=== PATIENT | male | born 1945 | race Caucasian/White ===

== ENCOUNTER 2020-09-13 17:17 | Emergency (ER) | payer MEDICARE, MEDICAID, SELFPAY ==
[2020-09-13 17:51] VITALS: BP 112/70; PULSE 79; RESP 18; TEMP 37.1; O2SAT 97; BMI 32.3
== END 2020-09-13 21:18 | disposition left against medical advice (07) ==
PROVIDERS: Emergency Provider Emergency Medicine; PCP Internal Medicine Geriatric Medicine
DX: F41.0 Panic disorder [episodic paroxysmal anxiety] (principal); E11.9 Type 2 diabetes mellitus without complications
CPT/HCPCS: 99281; 99282

== ENCOUNTER 2020-09-15 02:05 | Emergency (ER) | payer MEDICARE, MEDICAID, SELFPAY ==
[2020-09-15] VITALS (7 sets, daily range): BP systolic 134–164; BP diastolic 60–76; PULSE 65–90; RESP 12–19; TEMP 36.9–37.7; O2SAT 95–100; BMI 27.4
--- NOTE | ~2020-09-15 | XR_ITS ---
EXAMINATION: XR SHOULDER, LEFT XR HUMERUS, LEFT CLINICAL INFORMATION: Fall. Pain. COMPARISON: None TECHNIQUE: External rotation AP and Y views of the left shoulder. AP and lateral views of the left humerus. XR/XR shoulder LT min 2V FINDINGS/IMPRESSION: There is a comminuted fracture of the proximal humerus involving both the surgical and anatomic necks. Humeral diaphysis is displaced one shaft width posteriorly with respect to the glenoid. Greater tuberosity fracture fragments present posterosuperior to the humeral head. The humeral head slightly subluxed inferiorly with respect to the glenoid, likely related to hemarthrosis. Remainder of the humerus intact. Degenerative changes of the acromioclavicular joint
--- NOTE | ~2020-09-15 | XR_ITS ---
EXAMINATION: XR CHEST CLINICAL INFORMATION: Leukocytosis COMPARISON: September 20, 2012 TECHNIQUE: AP portable view of the chest was obtained. FINDINGS: No significant abnormality is noted involving the heart, lungs, mediastinum, bony thorax or soft tissues. Status post previous right arm surgery. XR/XR chest 1V IMPRESSION: No acute disease.
--- NOTE | ~2020-09-15 | CT_ITS ---
EXAMINATION: CT HEAD WITHOUT CONTRAST CLINICAL INFORMATION: Dizziness COMPARISON: None TECHNIQUE: Contiguous axial imaging was performed from the skull base to vertex without intravenous administration of contrast. This CT examination was performed using dose optimization techniques as appropriate, variously including the following: *Automated exposure control *Adjustment of mA and/or kV according to patient size (this includes techniques or standardized protocols for targeted exams where dose is matched to indication/reason for exam; i.e. extremities or head) *Use of iterative reconstruction technique DLP: 669 mGy-cm FINDINGS: There is no evidence of acute intracranial hemorrhage or territorial infarction. No abnormal mass effect or midline shift is seen. Beyer to white matter differentiation is well preserved. No extra-axial fluid collections are identified. The ventricles are normal in size. There is no abnormal attenuation within the brain parenchyma. The osseous structures and soft tissues are normal. The mastoid air cells and visualized portions of the paranasal sinuses are well aerated. CT/CT head/brain wo con IMPRESSION: No acute intracranial process seen.
--- NOTE | ~2020-09-15 | XR_ITS ---
EXAMINATION: XR SHOULDER, LEFT XR HUMERUS, LEFT CLINICAL INFORMATION: Fall. Pain. COMPARISON: None TECHNIQUE: External rotation AP and Y views of the left shoulder. AP and lateral views of the left humerus. XR/XR humerus LT FINDINGS/IMPRESSION: There is a comminuted fracture of the proximal humerus involving both the surgical and anatomic necks. Humeral diaphysis is displaced one shaft width posteriorly with respect to the glenoid. Greater tuberosity fracture fragments present posterosuperior to the humeral head. The humeral head slightly subluxed inferiorly with respect to the glenoid, likely related to hemarthrosis. Remainder of the humerus intact. Degenerative changes of the acromioclavicular joint
[2020-09-15] MEDS: Ketorolac Tromethamine 15 MG/ML VIAL IM (02:28)
[2020-09-15] MEDS: Acetaminophen 325 MG TABLET 975 MG PO (02:28)
--- NOTE | 2020-09-15 02:39 | ED_ITS ---
HPI - Fall General Chief Complaint: Fall Stated Complaint: [facility] FALL W/L ARM PAIN,NO DEFORMITY,NO THINNERS Time Seen by Provider: 09/15/20 02:12 Source: patient and contract law specialist History of Present Illness HPI Narrative: 74-year-old male without significant past medical history brought in via EMS for a fall that resulted in significant left shoulder pain. Patient states he got up in the middle the night to get some orange juice spilled some of the orange juice and then stepped into it causing him to slip and fall backwards onto his left shoulder. Patient denies any head strike, blood thinners, loss of consciousness and describes the pain to be isolated to his left shoulder without numbness or tingling into his left fingers. Related Data Previous Rx's Medication Instructions Recorded ketorolac 10 mg tablet 10 mg PO Q6H PRN 5 Days #20 tab 09/15/20 Allergies Allergy/AdvReac Type Severity Reaction Status Date / Time Sulfa (Sulfonamide Allergy Unknown UNKNOWN - Verified 09/15/20 02:08 Antibiotics) PT STATES [SULFA (SULFONAMIDE HEMATURIA ANTIBIOTICS)] Review of Systems Review of Systems: Pertinent positives and negatives as stated in HPI 10 point review of systems is otherwise negative. PMFSH Past Medical History Medical History No acute medical problems Surgical History No history of previous surgery Social History Social History Advance Directives: No Advance Directives Information Provided: No Physical Exam Vital Signs: Vital Signs: Last Vital Signs Temp 98.7 F 09/15/20 07:09 Pulse 65 09/15/20 07:09 Resp 15 09/15/20 07:09 BP 150/68 H 09/15/20 07:09 Pulse Ox 96 09/15/20 07:09 Body Mass Index 27.4 VITAL SIGNS: Reviewed. GENERAL: Well developed, well nourished, in no acute distress. HEAD: Normocephalic/atraumatic EYES: PERRLA, EOMI EARS: Ext canals without abnormality OROPHARYNX: no oral lesions noted, posterior pharynx clear LUNGS: Normal breath sounds. No adventitious sounds or accessory muscle use. SpO2<96> CARDIOVASCULAR: Regular rate and rhythm without noted murmurs ABDOMEN: Soft, non-tender, non-distended with bowel sounds. LEFT UPPER EXTREMITY: Noted swelling and tenderness over deltoid portion of left shoulder, palpable radial/ulnar pulses, capillary refill less than 3 seconds, sensation intact SKIN: Inspection of the skin reveals no rashes NEUROLOGIC: Alert and oriented x 4. Strength and sensation to light touch were grossly intact x 4. Course Course Course Narrative: 74-year-old male with history and clinical presentation consistent with fracture versus dislocation left shoulder/humerus. Patient received combination analgesics for pain control. On review of all investigations patient found to have a common you did humeral head fracture that was dislocated and subluxed. 0319: Discussed case with orthopedics who recommends a sling and discharged home stating that they will call the patient. The nursing staff and myself went into the room with a community development worker to explain the plan to the patient as well as this diagnosis and although patient was acknowledging some portions of the discussion there were in consistencies and times that the patient appear to be a little off. Attempted to call available numbers for collateral information, however there were no answers at any of the phone numbers that were available. At this time I do not feel comfortable with discharging the patient and we will obtain basic labs and involve Case Management as well as physical therapy. Signed out to Dr Jarrett: f/u basic labs, PT, CM unless collateral information dictates otherwise. 0850: We were finally able to get in touch with patient's 's visiting nurse (the is currently at [facility]) who states that she has been attempting to get services for this patient for ?awhile?. It is her opinion that he seems to have forgetfulness and possibly early dementia. Discharge Plan Discharge Clinical Impression: Fracture of proximal end of left humerus Patient Disposition: Home, Self-Care Instructions: Proximal Humerus Fracture (ED) Additional Instructions: 1. Tylenol 1000 mg, por v?a oral, cada 6 horas seg?n sea necesario para controlar el dolor. No exceda los 4000 mg en 24 horas. 2. Juan J un seguimiento con paul proveedor de atenci?n primaria en los pr?ximos 1-2 d?as para victor m reevaluaci?n y un tratamiento ambulatorio adicional. 3. La oficina de cirug?a ortop?dica se comunicar? con usted hoy para programar victor m doris para paul brazo roto. 4. Por favor mantenga paul brazo en el cabestrillo hasta que sea evaluado por cirug?a ortop?dica. Regrese a la maryam de emergencias por un empeoramiento daphne de osbaldo s?ntomas. Prescriptions: New ketorolac 10 mg tablet 10 mg PO Q6H PRN (Reason: pain) 5 Days Qty: 20 RF: 0 Referrals: Chris Combs MD [Physician] - 2 days (Evaluation and treatment for proximal humeral fracture.) Name,MD Kana [Primary Care Provider] - 2 days (Re-evaluation for left humeral fracture) Print Language: Japanese
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
[2020-09-15] MEDS: Ketorolac Tromethamine 15 MG/ML VIAL IVPUSH (07:33)
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
[2020-09-15 09:05] LABS: Basophils Percent Auto 0.2 % (0-2); Hematocrit 44.4 % (42-52); Imm Gran Abs Auto 0.11 X10*3/uL (0.00-0.03); Imm Gran Pct Auto 0.5 % (0.0-0.4); Lymphocytes Absolute Auto 1.4 X10*3/uL (1.2-4.9); MANUAL DIFF FLAG SCAN; Mean Corpuscular HGB Conc 33.8 g/dl (31.0-36.0); Mean Corpuscular Hemoglobin 28.8 pg (27.0-33.0); Mean Corpuscular Volume 85.2 fL (80-98); Mean Platelet Volume 10.3 fL (9.4-12.4); Monocytes Absolute Auto 1.9 X10*3/uL (0.1-1.2); Monocytes Percent Auto 9.7 % (2-11); Neutrophils Absolute Auto 16.6 X10*3/uL (2.0-8.3); Neutrophils Percent Auto 82.6 % (45-73); Platelet Count 353 X10*3/uL (160-400); Red Blood Count 5.21 X10*6/uL (4.60-5.80); Red Cell Distribution Width 14.2 % (11.0-16.0); SCAN SMEAR FLAG 1; White Blood Count 20.1 X10*3/uL (4.8-10.8)
[2020-09-15 09:11] LABS: INTERNATIONAL NORM RATIO 1.1 (0.9-1.1); Prothrombin Time 12.7 SEC (9.9-13.0)
[2020-09-15 09:24] LABS: SLIDE REVIEW VERIFIED
[2020-09-15 09:30] LABS: Alanine Aminotransferase 15 U/L (0-40); Albumin Level 4.4 g/dL (3.5-5.0); Alkaline Phosphatase 50 U/L (39-117); Anion Gap 12 (12-20); Aspartate Amino Transferase 21 U/L (5-37); Bilirubin Total 1.9 mg/dL (0.0-1.0); Blood Urea Nitrogen 9 mg/dL (9-16); Calcium 9.5 mg/dL (8.4-10.2); Carbon Dioxide 24 mmol/L (22-29); Chloride 103 mmol/L (96-108); Creatinine Clr Calc Pharmacy 81.3; Estimated Glomerular Filt Rate > 60; Glucose Random 106 mg/dL (60-115); Potassium 3.4 mmol/L (3.3-5.1); Sodium 136 mmol/L (135-145)
[2020-09-15 09:30] LABS: Glucose, Whole Blood 109 mg/dL (60-115)
[2020-09-15 10:07] LABS: Glucose Urine UA NEG (NEG); Leukocyte Esterase Urine NEG (NEG); Nitrite Urine NEG (NEG); Specific Gravity - Urine 1.015 (1.005-1.025); Urine Blood NEG (NEG); Urine Ketones 40 MG/DL (NEG); Urine Protein NEG (NEG-TRACE)
[2020-09-15 10:09] LABS: Appearance Urine CLEAR; Color Urine YELLOW
--- NOTE | 2020-09-15 10:23 | MHC.CM.ED ---
Received case management consult overnight from Dr Brown. Patient came to the ER after a fall. Physical therapy eval completed. Short term rehab is recommended. Patient's is at [facility]. Referral made to [facility]. They do not have a male bed to offer today. Referral broadcasted in [place]. Attempted to reach patient's daughter, Vilma via telephone at [phone]. Left voicemail requesting return telephone call. Continue to monitor for d/c needs.
--- NOTE | 2020-09-15 10:39 | MHC.CM.ED ---
Per Yamileth at [facility], patient's insurance is [facility]. Insurance verification made aware. Continue to monitor for d/c needs.
[2020-09-15 11:11] LABS: COVID-19 Test Negative (Negative); IDNOW Serial# 08D9AD1C
--- NOTE | 2020-09-15 13:25 | MHC.CM.ED ---
Patient remains in ER. Still have not received return telephone call from daughter. T/W reached out to Priscilla at [facility]. Still waiting for call back with patient info. Continue to monitor for d/c needs.
[2020-09-15] MEDS: Morphine Sulfate 2 MG/ML CARTRIDGE IM (14:35)
--- NOTE | 2020-09-15 14:42 | MHC.CM.ED ---
Received return telephone call from Vilma. Vilma is Ailyn's daughter, not Francisco's. Vilma is not sure if there is a HCP or if patient would be agreeable to STR. Will attempt to meet with patient and patient scheduling coordinator. Continue to monitor for d/c needs.
--- NOTE | 2020-09-15 15:20 | PC.NURSE ---
CASE MANAGEMENT AT THE BEDSIDE WITH SOUND EFFECTS PERSON TO EXPLAIN PLAN OF CARE TO THE PATIENT. PHYSICAL THERAPY RECOMMENDING STR FOR THE PATIENT.
--- NOTE | 2020-09-15 15:28 | MHC.CM.ED ---
Addendum entered by Shannan Lu 09/15/20 16:20: Patient received 2nd Moderna vaccine on 09/01/20. Original Note: Met with patient and hand ii cutter. Patient verbalizes understanding of the need of short term rehab and that [facility] does not have a bed available. Patient is requesting a facility in [place]. [facility] updated. Continue to monitor for d/c needs.
--- NOTE | 2020-09-16 08:24 | PC.NURSE ---
pt a/o x 2, pt states [place] was in [place] aware.
[2020-09-16 08:25] VITALS: BP 136/93; PULSE 74; RESP 16; TEMP 37.5; O2SAT 96
--- NOTE | 2020-09-16 12:33 | MHC.CM.ED ---
Patient remains in ER. [facility], [facility], [facility] [address], and [facility] can offer beds. Met with pateint and senior ios developer in regards to short term rehab options. Patient accepts bed at [facility]. [facility] booked for 2pm. [facility] with chart. Patient, Maribel SANCHEZ and Rolando RICARDO aware. Continue to monitor for d/c needs.
--- NOTE | 2020-09-16 13:33 | PC.NURSE ---
Report given to Ben arriola RN. Ambulance coming to transport patient @1400.
== END 2020-09-16 13:59 | disposition home or self-care (01) ==
PROVIDERS: Student in an Organized Health Care Education/Training Program; Emergency Provider Emergency Medicine; PCP Internal Medicine Geriatric Medicine
DX: S42.222A 2-part displaced fracture of surgical neck of left humerus, initial encounter for closed fracture (principal); S42.292A Other displaced fracture of upper end of left humerus, initial encounter for closed fracture; S42.255A Nondisplaced fracture of greater tuberosity of left humerus, initial encounter for closed fracture; W01.0XXA Fall on same level from slipping, tripping and stumbling without subsequent striking against object, initial encounter; E11.9 Type 2 diabetes mellitus without complications; Y93.89 Activity, other specified; Y92.030 Kitchen in apartment as the place of occurrence of the external cause; Y99.9 Unspecified external cause status; Z20.822 Contact with and (suspected) exposure to COVID-19
CPT/HCPCS: 36415; 70450; 71045; 73030; 73060; 80053; 81003; 82947; 85025; 85610; 87635; 96372; 96374; 97162; 99285; J1885; J2270

== ENCOUNTER 2020-10-06 08:13 | Outpatient (REF) | payer MEDICARE, MEDICAID, SELFPAY | END 2020-10-06 08:14 | disposition home or self-care (01) | LOC: HO.HOSX 08:13 | PROVIDERS: Visit Provider Orthopaedic Surgery | DX: Z13.89 Encounter for screening for other disorder (principal) ==

== ENCOUNTER → 2020-12-06 13:56 | Outpatient (BNVA) | payer MEDICARE, MEDICAID, SELFPAY | PROVIDERS: Visit Provider Internal Medicine | DX: M54.50 Low back pain, unspecified (principal); B36.9 Superficial mycosis, unspecified | CPT/HCPCS: 99202 ==

== ENCOUNTER 2022-10-24 14:15 | Emergency (ER) | payer OTHER, SELFPAY ==
--- NOTE | ~2022-10-24 | XR_ITS ---
EXAMINATION: XR SHOULDER, LEFT CLINICAL INFORMATION: Shoulder pain. COMPARISON: None available. TECHNIQUE: Three views of the left shoulder. XR/XR shoulder LT min 2V FINDINGS/IMPRESSION: Severe deformity of the left humeral head is likely posttraumatic and/or postsurgical in nature. Findings suggest degenerative changes of the glenohumeral joint and acromioclavicular joint. No definite acute fracture or dislocation is identified as such, although deformity somewhat limits evaluation. Mild atherosclerotic aorta..
[2022-10-24 14:25] VITALS: BP 120/68; PULSE 120; O2SAT 96
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
[2022-10-24 14:33] VITALS: BP 113/66; PULSE 97; RESP 18; TEMP 36.9; O2SAT 96; BMI 22.6
== END 2022-10-24 18:23 | disposition home or self-care (01) ==
PROVIDERS: Emergency Provider Emergency Medicine
DX: S40.012A Contusion of left shoulder, initial encounter (principal); M25.512 Pain in left shoulder; V43.52XA Car driver injured in collision with other type car in traffic accident, initial encounter; Y93.9 Activity, unspecified; Y92.410 Unspecified street and highway as the place of occurrence of the external cause; Y99.9 Unspecified external cause status
CPT/HCPCS: 73030; 99282; 99283

== ENCOUNTER 2023-10-29 12:09 | Outpatient (REF) | payer OTHER, SELFPAY ==
[2023-10-29 13:17] LABS: MANUAL DIFF FLAG NO
[2023-10-29 13:26] LABS: Basophils Absolute Auto 0.1 X10*3/uL (0.0-0.2); Basophils Percent Auto 0.7 % (0-2); Eosinophils Absolute Auto 0.2 X10*3/uL (0.0-0.4); Eosinophils Percent Auto 2.4 % (0-4); Hematocrit 46.7 % (42.0-52.0); Hemoglobin 15.5 g/dl (14.0-18.0); Imm Gran Abs Auto 0.03 X10*3/uL (0.00-0.03); Imm Gran Pct Auto 0.3 % (0.0-0.4); Lymphocytes Absolute Auto 1.5 X10*3/uL (1.2-4.9); Lymphocytes Percent Auto 16.7 % (20-40); Mean Corpuscular HGB Conc 33.2 g/dl (31.0-36.0); Mean Corpuscular Hemoglobin 29.8 pg (27.0-33.0); Mean Corpuscular Volume 89.8 fL (80.0-98.0); Mean Platelet Volume 10.5 fL (9.4-12.4); Monocytes Absolute Auto 0.7 X10*3/uL (0.1-1.2); Monocytes Percent Auto 8.5 % (2-11); Neutrophils Absolute Auto 6.2 x10*3/uL (2.0-8.3); Neutrophils Percent Auto 71.4 % (45-73); Platelet Count 385 X10*3/uL (160-400); Red Cell Distribution Width 14.3 % (11.0-16.0); White Blood Count 8.7 X10*3/uL (4.8-10.8)
[2023-10-29 13:58] LABS: Alanine Aminotransferase 18 U/L (0-40); Albumin Level 4.6 g/dL (3.5-5.0); Alkaline Phosphatase 38 U/L (39-117); Anion Gap 14 (12-20); Aspartate Amino Transferase 19 U/L (5-37); Bilirubin Total 0.8 mg/dL (0.0-1.0); Blood Urea Nitrogen 10 mg/dL (9-16); Calcium 9.9 mg/dL (8.4-10.2); Carbon Dioxide 24 mmol/L (22-29); Chloride 106 mmol/L (96-108); Cholesterol 193 mg/dL (<200); Estimated Glomerular Filt Rate > 60; Glucose Random 98 mg/dL (60-115); HDL Cholesterol 54 mg/dL (>40); LDL Cholesterol Calculated 122 mg/dL (<100); Potassium 4.4 mmol/L (3.3-5.1); Sodium 140 mmol/L (135-145); Total Protein 7.5 g/dL (6.5-8.0); Triglycerides 89 mg/dL (<150)
[2023-10-29 14:33] LABS: Estimated Average Glucose 105 mg/dL; Hemoglobin A1c % 5.3 % (<6.0)
[2023-10-30 04:15] LABS: Syphilis Screen Nonreactive (Nonreactive)
[2023-10-30 04:37] LABS: HBc Num1 5.32 S/CO (0.00-0.79); HBsAGNum1 0.22 S/CO (0.00-0.99); Hepatitis B Surface Antigen Negative (Negative); ~HepC Num1 0.45 S/CO (0.00-0.79); ~Hepatitis B Surface Antibody REACTIVE (Nonreactive); ~Hepatitis C Antibody Nonreactive (Nonreactive)
[2023-10-30 04:58] LABS: HIV AB/AG Nonreactive (Nonreactive); HIV Num 1 0.05 S/CO (0.00-0.99)
[2023-10-30 05:35] LABS: HBc Num2 5.64 S/CO; HBc Num3 5.39 S/CO; Hepatitis B Core Antibody Reactive (Nonreactive)
== END 2023-10-29 12:10 | disposition home or self-care (01) ==
LOC: HO.HHCL 12:09
PROVIDERS: Visit Provider Registered Nurse
DX: Z00.00 Encounter for general adult medical examination without abnormal findings (principal); Z13.1 Encounter for screening for diabetes mellitus
CPT/HCPCS: 36415; 80053; 80061; 83036; 85025; 86704; 86706; 86780; 86803; 87340; 87389

== ENCOUNTER 2023-10-30 14:09 | Outpatient (REF) | payer OTHER, SELFPAY ==
--- NOTE | ~2023-10-30 | XR_ITS ---
EXAMINATION: Lumbosacral spine series CLINICAL INFORMATION: Chronic low back pain. COMPARISON: X-ray lumbosacral spine April 2015. TECHNIQUE: 4 views of the lumbosacral spine including obliques FINDINGS: There is a transitional lumbar sacral junction with partial lumbarization of S1. There is persistent/chronic compression fracture of L1 involving the superior endplate unchanged. Vertebral body height otherwise normal with normal alignment. Multilevel degenerative disc changes manifested by endplate osteophytes without disc space narrowing at all disc levels. Suspect at least mild facet arthrosis at the L4-L5 and L5-S1 levels. Surrounding bones and soft tissues unremarkable except for persistent to mild calcification of the abdominal aorta. . XR/XR lumbar spine 4V min IMPRESSION: Multilevel spondylosis of the lumbosacral spine stable. Stable old compression fracture L1 Electronically signed by: Damián Castro MD 11/14/2023 07:20 AM EDT
== END 2023-10-30 14:10 | disposition home or self-care (01) ==
LOC: HO.HHCX 14:09
PROVIDERS: Visit Provider Registered Nurse
DX: M54.50 Low back pain, unspecified (principal); G89.29 Other chronic pain
CPT/HCPCS: 72110

== ENCOUNTER 2023-11-27 12:57 | Outpatient (REF) | payer OTHER, MEDICAID, SELFPAY ==
--- NOTE | ~2023-11-27 | MM_ITS ---
EXAMINATION: BONE DENSITOMETRY CLINICAL INDICATION: 77-year-old male with history of osteoporosis. No treatment for greater than 5 years. COMPARISON: Previous BD dated 09/26/2012 and baseline BD dated 01/07/2007. TECHNIQUE: Using a [employer]Cast DXA System (software version: 13.1) manufactured by [employer], dual-energy x-ray absorptiometry was performed of the lumbar spine and left hip. The images are of good technical quality. Summary results are attached. FINDINGS: AP SPINE L1-L4: Current: BMD 0.981 g/cm2, Z-score -1.1, T-score -2.0, osteopenia, 2.1% increase from previous, 14.1% increase from baseline (<5% change is not significant). Prior: BMD 0.961 g/cm2. Baseline: BMD 0.860 g/cm2. LEFT FEMUR, NECK: Current: BMD 0.732 g/cm2, Z-score -1.0, T-score -2.6, osteoporosis. Prior: BMD 0.791 g/cm2. Baseline: BMD 0.767 g/cm2. LEFT FEMUR, TOTAL: Current: BMD 0.809 g/cm2, Z-score -0.9, T-score -2.0, osteopenia, 14.9% decrease from previous, 13.8% decrease from baseline (<5% change is not significant). Prior: BMD 0.951 g/cm2. Baseline: BMD 0.939 g/cm2. IDENTIFIED RISK FACTORS: Osteoporosis. Current smoker. HISTORY OF FRACTURE: None listed. MEDICATIONS: Vitamin D. MM/XR DEXA axial skeleton IMPRESSION: 1. DIAGNOSIS: Osteoporosis based on the lowest T-score value of -2.6 in the femoral neck applying World Health Organization criteria. 2. 10-YEAR FRACTURE RISK PREDICTION, FRAX: According to the guidelines, FRAX calculation should only be performed on patients in the osteopenia bone density category. Therefore, FRAX was not performed on this patient. 3. Treatment Recommendations: NOF guidelines recommend consideration for treatment in postmenopausal women and men age 50 and older presenting with the following: -A hip or vertebral (clinical or morphometric) fracture. -T-score less than or equal to -2.5 at the femoral neck or spine after appropriate evaluation to exclude secondary causes. -Low bone mass at the hip or spine and a 10-year fracture probability by FRAX of greater than or equal to 3% for hip fracture or greater than or equal to 20% for major osteoporotic fracture based on the [place] adapted WHO algorithm. 4. Other Recommendations: All treatment decisions require clinical judgment and consideration of individual patient factors, including patient preferences, comorbidities, previous drug use, risk factors not captured in the FRAX model (e.g. frailty, falls, vitamin D deficiency, increased bone turnover, interval significant decline in bone density) and possible under or overestimation of fracture risk by FRAX. Additional medical evaluation for secondary cause of low bone mineral density may be appropriate. FUTURE SCAN RECOMMENDATION: People with diagnosed cases of osteoporosis or at high risk for fracture should have regular bone mineral density tests. For patients eligible for Medicare, routine testing is allowed once every 2 years. The testing frequency can be increased to one year for patients who have rapidly progressing disease, those who are receiving or discontinuing medical therapy to restore bone mass, or have additional risk factors. Electronically signed by: Buster Villegas MD 12/06/2023 09:57 AM EDT
== END 2023-11-27 12:58 | disposition home or self-care (01) ==
LOC: HO.MAMMO 12:57
PROVIDERS: PCP Registered Nurse; Visit Provider Registered Nurse
DX: M81.0 Age-related osteoporosis without current pathological fracture (principal)
CPT/HCPCS: 77080

== ENCOUNTER 2025-01-21 14:03 | Emergency (ER) | payer OTHER, SELFPAY ==
[2025-01-21] VITALS (8 sets, daily range): BP systolic 120–178; BP diastolic 56–84; PULSE 92–130; RESP 16–36; TEMP 36.7; O2SAT 93–97; BMI 25.6
--- NOTE | ~2025-01-21 | CT_ITS ---
CLINICAL HISTORY: abdominal pain,LLQ CT ABDOMEN AND PELVIS WITH CONTRAST Comparison: None provided Findings: Bilateral lower lobe opacities, right greater than left. No pleural effusion. No acute injuries in the solid organs. 2.4 cm lobulated cyst in the left hepatic lobe. No hydronephrosis. 4.0 cm lobulated cystic lesion in the upper pole of the right kidney with density measurements = 36 HU, not consistent with a simple cyst. 2.0 cm water attenuation cystic lesion in the left kidney. Gallbladder unremarkable. No AAA. No hemoperitoneum or pneumoperitoneum. No bowel obstruction, ascites or pneumatosis. Multiple colonic diverticula with no significant paracolic edema. The appendix is unremarkable. The prostate is enlarged with AP x transverse dimensions of 4.4 x 4.9 cm. There is mass effect on the urinary bladder base. There is diffuse urinary bladder wall thickening with adjacent fat stranding. Cortical irregularities and disruptions in the bilateral parasymphyseal regions. No symphysis pubis diastasis. No acute hip fracture or dislocation. No significant vertebral body compression deformity in the thoracolumbar spine. IMPRESSION: 1. Motion affected study. 2. No solid organ or bowel injury. 3. Bilateral nondisplaced pubic bone fractures. 4. Bilateral lower lobe opacities secondary to volume loss, infection or inflammation i.e. aspiration, right greater than left. 5. Wall thickening in the urinary bladder secondary to cystitis and/or outlet obstruction from prostatomegaly. 6. No acute obstructive uropathy. 4.0 cm complex cyst in the right kidney is technically indeterminate. Follow-up dedicated renal CT or MRI could be performed on a nonemergent elective basis. 7. Diverticulosis coli with no evidence for acute diverticulitis. 8. Additional findings as above. This document has been electronically signed by: Paula Calles DO on 01/21/2025 17:47:44
--- NOTE | ~2025-01-21 | CT_ITS ---
CLINICAL HISTORY: fall head strike CT HEAD WITHOUT CONTRAST Comparison: None provided Findings: Trace subarachnoid hemorrhage in the left posterior parietal lobe on axial image 46, series 4. Small subarachnoid hemorrhage in the anterior interhemispheric fissure measures roughly 1.1 x 1.1 x 0.6 cm on axial image 55. 2.5 mm periventricular hyperdensity in the right frontal lobe is suspicious for a tiny parenchymal hemorrhage on axial image 46. No hydrocephalus or midline shift. Age appropriate generalized parenchymal atrophy. There are periventricular and subcortical white matter hypodensities which are most likely related to microangiopathic gliosis. No sinus fluid. Complete opacification of the right mastoid air cells. There is fluid in the middle auditory canal. No obvious temporal bone fracture. Visualized orbits: No acute abnormalities. IMPRESSION: 1. Trace subarachnoid hemorrhage in the left posterior parietal lobe. 2. Small subarachnoid hemorrhage in the anterior interhemispheric fissure. 3. 2.5 mm periventricular hyperdensity in the right frontal lobe is suspicious for a tiny parenchymal hemorrhage. 4. Favor inflammatory over traumatic right otomastoiditis. Recommend clinical correlation. This document has been electronically signed by: Paula Calles DO on 01/21/2025 17:32:40
--- NOTE | ~2025-01-21 | XR_ITS ---
EXAMINATION: XR CHEST CLINICAL INFORMATION: weakness COMPARISON: September 07, 2020 TECHNIQUE: Frontal view of the chest was obtained. FINDINGS: There is minimal basilar atelectasis. Lungs are clear otherwise. Heart size is within normal limits. There are anchors in the right humerus related to rotator cuff repair. There is chronic deformity from remote fracture of the proximal left humerus. XR/XR chest 1V IMPRESSION: No acute disease. Electronically signed by: Juan Luis Davila MD 01/21/2025 03:10 PM [facility]BOR[facility] CANTU
--- NOTE | ~2025-01-21 | CT_ITS ---
CLINICAL HISTORY: fall CT CERVICAL SPINE WITHOUT CONTRAST Comparison: None provided Findings: Vertebral alignment is within normal limits. [id number] multilevel disc space narrowing with large multilevel endplate osteophytes. Mild multilevel facet degenerative changes. No acute fractures or dislocations. Please see separate report for CT head/brain. No acute abnormalities in the soft tissues of the neck or lung apices. IMPRESSION: No acute fracture in the cervical spine. This document has been electronically signed by: Paula Calles DO on 01/21/2025 17:35:12
--- NOTE | 2025-01-21 14:48 | ED.SYNCOPE ---
HPI - Syncope General Chief Complaint: Syncope Stated Complaint: Dizzy for 2 days, LOC +jacky Time Seen by Provider: 01/21/25 14:36 Source: patient, family (), EMS and accountant manager History of Present Illness ED Provider: HPI narrative: 79-year-old male here with his , brought in by ambulance, reports of not feeling well for the past 2 days, patient reported feeling weak and dizzy, increased urination, left lower quadrant abdominal pain, decreased p.o. intake since 16:00 yesterday, today he was walking in his holding her hand and he felt unwell and passed out hitting his head, likely LOC, not on blood thinners, patient denied chest pain palpitations prior to collapsed, no reports of loss of bowel or bladder function, no reports of seizures. Related Data Home Medications ?Medication ?Instructions ?Recorded ?Confirmed omeprazole 20 mg capsule,delayed 1 cap PO DAILY 09/15/20 09/15/20 release Previous Rx's ?Medication ?Instructions ?Recorded naproxen 375 mg tablet,delayed 375 mg PO BID #30 tabs 12/06/20 release (EC-Naproxen) nystatin 100,000 unit/gram topical 1 appl topical TID #30 grams 12/06/20 cream acetaminophen 325 mg capsule 650 mg (2 x 325 mg) PO Q6H PRN 10/24/22 (Tylenol) pain #30 caps ibuprofen 600 mg tablet 600 mg PO Q6H PRN pain #30 tabs 10/24/22 oxycodone 5 mg capsule 5 mg PO Q8H PRN severe pain (scale 10/24/22 score 7-10) #5 caps Allergies Allergy/AdvReac Type Severity Reaction Status Date / Time Sulfa (Sulfonamide Allergy Unknown UNKNOWN - Verified 01/21/25 14:33 Antibiotics) (SULFA PT STATES (SULFONAMIDE ANTIBIOTICS)) HEMATURIA Review of Systems Constitutional: Constitutional: Reports as per [facility] Past Medical History Medical History (Updated 01/21/25 @ 15:01 by Berny Shoemaker DO) Low back pain 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 Osteoporosis Diabetes No acute medical problems Surgical History (System 10/24/22 @ 17:25 by Christie Cruz) No history of previous surgery Social History Social History (System 10/24/22 @ 17:25 by Christie Moore Alcohol intake: never Patient Tobacco Use Status: Never used Tobacco Smoked in Last 30 Days: Yes Use of substances other than those prescribed or required for medical reasons: No Advance Directives: No Advance Directives Information Provided: Yes Physical Exam Exam: Exam: ?General: ??looks age appropriate ?Dried blood at the left nare, there was no septal hematoma, there is no nasal deformity, dry oral mucosa no blood in the airway Neck: Cervical collar cleared using nexus criteria ?CV: RRR, no obvious murmurs appreciated ?Resp: ?No wheezing rales rhonchi no stridor moving air well Abd: ?Bowel sounds are present, no tenderness no rebound no rigidity MSK: FROM, strength 5/5 all extremities, no deformities to the upper or lower extremities Skin: No hematomas no abrasions, no midline tenderness or step-offs from the cervical down to the lumbosacral area, pelvis is stable ?Neuro: ?Alert to self, location, month but not ear, moving upper and lower extremities symmetrically, no obvious facial asymmetry noted, cranial nerves 2-12 intact Vital Signs: Vital Signs: Last Vital Signs Temp 98.1 F 01/21/25 14:29 Pulse 92 01/21/25 16:47 Resp 20 01/21/25 16:47 BP 123/63 01/21/25 16:47 Pulse Ox 96 01/21/25 16:47 O2 Del Method Room Air 01/21/25 16:47 BMI result Body Mass Index 25.6 Course Reevaluation(s) Reevaluation #1: 4:28 PM 01/21/2025 (Dr. Maurisio Mace): I assumed care at this time the patient is arriving with a syncopal episode. Bloody nose that resolved prior to arrival. He apparently has small collapsing IVC and otherwise examination lab work suggestive of hypovolemia per the examination and interpretation of the previous provider who signed him out to me. Patient is hypokalemic he is getting continued fluids I will write for potassium supplementation and continue to reassess. Apparently O2 sat with the EMS 90 but he has been on room air here saturating in the mid 90s no respiratory distress per nurse Reevaluation #2: 5:37 PM 01/21/2025 (Dr. Maurisio Mace): I was called by Radiology about small traumatic subarachnoid hemorrhages scattered. Unfortunately we have no neurosurgical coverage despite BIG 1 patient will need transfer to trauma center I will call [facility]. CT abdomen also read with traumatic injury stable pubic fractures he is tender over that area though there was no bruising no other traumatic injuries of the abdomen. There is suspicion of the CT of possible pneumonia and/or thickening of the bowel bladder we will get a urinalysis but he does not have any dysuria. Impression: Overall the patient has concerning syncopal episode possibly due to arrhythmia given the profound hypokalemia. He was dehydrated and has received crystalloid and electrolyte repletion. He appears to have multiple small scattered subarachnoid hemorrhages traumatic no neck injury. And pelvic fracture. Transfer to [facility] disposition. Reevaluation #3: 6:18 PM 01/21/2025 (Dr. Maurisio Mace): Around this time patient became quite tachycardic and developed rigors. He was covered in warm blankets. Heart rate up in the 120s but remains hemodynamically stable. Sat 92 on room air you appears uncomfortable my suspicion is that he is in significant pain after I examined him following the identification of pelvic fractures I palpated his pubic symphysis and this caused significant pain. There was possible suggestion of thickened bladder wall? UTI as well as possibly bilateral lower lobe opacities without effusion. At this time I asked the if he has been coughing she did acknowledge and increased cough with no phlegm or hemoptysis. He may need dedicated chest imaging upon arrival to [facility] but given that he has been transferred there and EMS is coming within 1/2 hour I do not think there is an emergent need to do this before he goes. I will give him ceftriaxone and Flagyl. Thus far in the emergency department patient has received: 500 cc of potassium fluid (half NS with 20 mEq potassium), fentanyl 100 at about 1605, 40 mEq oral potassium chloride, 1 L normal saline, 1 L lactated Ringer's. Ceftriaxone 2 g, Flagyl 500 mg Notable labs leukocytosis with neutrophil predominance. WBC 22. He has previously in 2020 had elevated white count of 20 unsure the clinical situation that we do not have a lot of documentation on him. Potassium 2.9. BUN 17, creatinine 1.04. Bicarb 20, sodium 146. Total bilirubin 1.3 no direct obtained. Negative influenza, negative RSV, negative COVID. Urinalysis just returned at 18:10 with positive nitrites Medications Administered Generic Name Dose Route Start Last Admin Trade Name Freq PRN Reason Stop Dose Admin Potassium Chloride/Sodium Chloride 20 meq in 1,000 mls @ 500 mls/hr 01/21/25 17:00 01/21/25 17:00 Kcl 20 Meq In 0.45% Sod IVCONT 01/21/25 18:59 500 mls/hr .Q2H SALLY Administration Ceftriaxone Sodium 2 gm/ 50 mls @ 100 mls/hr 01/21/25 17:55 01/21/25 18:12 Sodium Chloride IV 01/21/25 18:24 100 mls/hr ONCE ONE Administration Discontinued Medications Generic Name Dose Route Start Last Admin Trade Name Freq PRN Reason Stop Dose Admin Sodium Chloride 1,000 mls @ 999 mls/hr 01/21/25 15:00 01/21/25 16:20 Ns IV 01/21/25 16:00 Infused .Q1H1M SALLY Infusion Potassium Chloride/Sodium Chloride 20 meq in 1,000 mls @ 500 mls/hr 01/21/25 16:30 01/21/25 17:00 Kcl 20 Meq In 0.45% Sod IVCONT Not Given .Q2H SALLY Lactated Ringer's 1,000 mls @ 999 mls/hr 01/21/25 16:30 01/21/25 16:53 Lr IV 01/21/25 17:30 999 mls/hr .Q1H1M SALLY Administration Iohexol 100 ml 01/21/25 16:33 01/21/25 16:34 Iohexol 350 Mg/Ml 100 Ml Infus..Btl IV 01/21/25 16:34 85 ml ONCE ONE Administration Potassium Chloride 40 meq 01/21/25 16:23 01/21/25 16:49 Potassium Chloride Packet 20 Meq Packet PO 01/21/25 16:24 40 meq ONCE ONE Administration Medical Decision Making Medical Decision Making MDM Narrative: 2:58 PM 01/21/2025 (Dr. Berny Shoemaker): Patient is presenting with generalized malaise for the past 2 days, decreased p.o. intake, has had no prodromal symptoms prior to passing out, after some prompting was noted that he has had some dysuria, abdominal pain, bedside ultrasound without pericardial effusion RV strain to suspect pericarditis or PE causing his syncope, IVC fully collapsed which raises suspicion for hypovolemia causing syncope, cervical collar was cleared using nexus criteria, no EtOH on board reported, we will obtain imaging of the brain and cervical spine given his age however, he is not on blood thinners Other considerations include dysrhythmia, anemia, no pulsatile masses on exam but I will be obtaining CT abdomen and pelvis mostly to evaluate for diverticulitis or colitis, disposition to be determined Differential Diagnosis Differential Diagnoses: The differential diagnosis associated with the presentation includes (ACS, PE, dysrhythmia, anemia, cardiac tamponade, AAA rupture, vasovagal syncope, orthostatic syncope, medication induced syncope) Admission/Observation Consideration of admission/observation: Escalation of care including admission/observation considered Lab Data 01/21/25 15:27 01/21/25 15:27 Labs: Lab Results 01/21/25 Range/Units 15:27 WBC 22.8 H (4.8-10.8) X10*3/uL RBC 4.62 (4.60-5.80) X10*6/uL Hgb 13.6 L (14.0-18.0) g/dl Hct 40.3 L (42.0-52.0) % MCV 87.2 (80.0-98.0) fL MCH 29.4 (27.0-33.0) pg MCHC 33.7 (31.0-36.0) g/dl RDW 14.6 (11.0-16.0) % Plt Count 188 D (160-400) X10*3/uL MPV 11.3 (9.4-12.4) fL Immature Gran % (Auto) 1.8 H (0.0-0.4) % Neut % (Auto) 89.6 H (45-73) % Lymph % (Auto) 1.4 L (20-40) % [place] % (Auto) 7.0 (2-11) % Eos % (Auto) 0.0 (0-4) % Baso % (Auto) 0.2 (0-2) % Lymph # (Auto) 0.3 L (1.2-4.9) X10*3/uL [place] # (Auto) 1.6 H (0.1-1.2) X10*3/uL Eos # (Auto) 0.0 (0.0-0.4) X10*3/uL Baso # (Auto) 0.0 (0.0-0.2) X10*3/uL Abs Immat Gran (auto) 0.41 H (0.00-0.03) X10*3/uL Absolute Neuts (auto) 20.4 H (2.0-8.3) x10*3/uL Absolute Nucleated RBC 0.000 (0.0-0.012) X10*3/uL Nucleated RBC % (auto) 0.0 (0.0-0.2) /100WBC Smear Tech's Comments VERIFIED Sodium 146 H (135-145) mmol/L Potassium 2.9 L* D (3.3-5.1) mmol/L Chloride 117 H (96-108) mmol/L Carbon Dioxide 20 L (22-29) mmol/L Anion Gap 12 (12-20) BUN 17 H (9-16) mg/dL Creatinine 1.04 (0.5-1.4) mg/dL Estim Creat Clear Calc 55.6 Estimated GFR > 60 Random Glucose 136 H (60-115) mg/dL Lactic Acid 1.4 (0.5-2.0) mmol/L Calcium 8.5 D (8.4-10.2) mg/dL Magnesium 1.7 (1.6-2.6) mg/dL Total Bilirubin 1.3 H (0.0-1.0) mg/dL AST 23 (5-37) U/L ALT 12 (0-40) U/L Alkaline Phosphatase 47 (39-117) U/L Total Protein 5.9 L (6.5-8.0) g/dL Albumin 3.4 L (3.5-5.0) g/dL Influenza Type A (PCR) NEGATIVE (Negative) Influenza Type B (PCR) NEGATIVE (Negative) RSV RNA Qual (PCR) NEGATIVE (Negative) SARS-CoV-2 RNA (RT-PCR) NEGATIVE (Negative) Independent Interpretation I performed an independent interpretation of an: EKG (93 beats per minute bifascicular versus right bundle-branch block, no QTC prolongation no underlying dysrhythmia no changes to suspect underlying ACS) and Plain X-Ray (My independent chest xray interpretation: Lungs: Lungs are clear bilaterally without evidence of focal consolidation, pleural effusion, or pneumothorax. Cardiac silhouette is unremarkable, no obvious mediastinal widening, no obvious bony abnormalities such as fractures. Impression: Normal chest X-r) Independent Historian Clinical information obtained from an independent historian. History obtained from or confirmed by: Spouse and EMS Procedures Ultrasound ED POC Ultrasound: EMERGENCY ULTRASOUND REPORT?Point of Care Cardiac (Echo-Focus), images I locally stored Emergent Cardiac for Indication: Syncope Views Used: Parasternal long, parasternal short, 4 chamber, subxiphoid, IVC Pericardial Effusion/Tamponade Findings: No pericardial effusion Global LV Fxn: Preserved IVC Dilation and Resp Variation: Impression: Hypovolemia, no pericardial effusion, no RV strain, good cardiac squeeze Discharge Plan Discharge Clinical Impression: Syncope and collapse, Hypovolemia, Contusion of face Patient Disposition: [facility] Transfer Details: Syncope, traumatic subarachnoid hemorrhage requiring transfer to [facility]. Injuries: Scattered subarachnoid possible small intraparenchymal bleed. Pelvis: Pubic bone fractures nondisplaced. No intra-abdominal traumatic injuries. Urinalysis suggestive of UTI. CT abdomen revealed possible bilateral right greater than left lower lobe infiltrates. Prescriptions: No Action omeprazole 20 mg capsule,delayed release(DR/EC) 1 cap PO DAILY ibuprofen 600 mg tablet 600 mg PO Q6H PRN (Reason: pain) Qty: 30 0RF acetaminophen [Tylenol] 325 mg capsule 650 mg PO Q6H PRN (Reason: pain) Qty: 30 0RF oxycodone 5 mg capsule 5 mg PO Q8H PRN (Reason: severe pain (scale score 7-10)) Qty: 5 0RF Rx Instructions: Partial Fill upon patient request. naproxen [EC-Naproxen] 375 mg tablet,delayed release (DR/EC) 375 mg PO BID Qty: 30 0RF nystatin 100,000 unit/gram cream 1 appl topical TID Qty: 30 0RF Print Language: Croatian
--- NOTE | 2025-01-21 14:49 | ECG_ITS ---
Test Reason : syncope Blood Pressure : */* mmHG Vent. Rate : 93 BPM Atrial Rate : 93 BPM P-R Int : 172 ms QRS Dur : 138 ms QT Int : 372 ms P-R-T Axes : 62 -64 47 degrees QTcB Int : 462 ms Normal sinus rhythm Right bundle branch block Left anterior fascicular block Bifascicular block Abnormal ECG When compared with ECG of 20-Sep-2012 14:22, (RBBB and left anterior fascicular block) is now Present Referred By: Berny Shoemaker Electronically Signed By: CORTEZ DU
[2025-01-21 15:49] LABS: Hematocrit 40.3 % (42.0-52.0); Hemoglobin 13.6 g/dl (14.0-18.0); Imm Gran Abs Auto 0.41 X10*3/uL (0.00-0.03); Imm Gran Pct Auto 1.8 % (0.0-0.4); Lymphocytes Absolute Auto 0.3 X10*3/uL (1.2-4.9); MANUAL DIFF FLAG SCAN; Mean Corpuscular HGB Conc 33.7 g/dl (31.0-36.0); Mean Corpuscular Hemoglobin 29.4 pg (27.0-33.0); Mean Corpuscular Volume 87.2 fL (80.0-98.0); NRBC Abs Auto 0.000 X10*3/uL (0.0-0.012); NRBC Pct Auto 0.0 /100WBC (0.0-0.2); Platelet Count 188 X10*3/uL (160-400); Red Blood Count 4.62 X10*6/uL (4.60-5.80); SCAN SMEAR FLAG 1; White Blood Count 22.8 X10*3/uL (4.8-10.8)
[2025-01-21 16:09] LABS: Alanine Aminotransferase 12 U/L (0-40); Albumin Level 3.4 g/dL (3.5-5.0); Alkaline Phosphatase 47 U/L (39-117); Anion Gap 12 (12-20); Aspartate Amino Transferase 23 U/L (5-37); Blood Urea Nitrogen 17 mg/dL (9-16); Calcium 8.5 mg/dL (8.4-10.2); Carbon Dioxide 20 mmol/L (22-29); Chloride 117 mmol/L (96-108); Creatinine Clr Calc Pharmacy 55.6; Estimated Glomerular Filt Rate > 60; Magnesium 1.7 mg/dL (1.6-2.6); Potassium 2.9 mmol/L (3.3-5.1); Sodium 146 mmol/L (135-145); Total Protein 5.9 g/dL (6.5-8.0)
[2025-01-21 16:29] LABS: Resp Syncy Virus RNA Qual PCR NEGATIVE (Negative); SARS COV2 PCR INHOUSE NEGATIVE (Negative)
[2025-01-21] MEDS: iohexoL 350 MG/ML 100 ML INFUS..BTL IV (16:34)
[2025-01-21] MEDS: Potassium Chloride Packet 20 MEQ PACKET 40 MEQ PO (16:49)
[2025-01-21] MEDS: Lactated Ringers 1,000 ML 999 ML IV (16:53)
[2025-01-21] MEDS: KCl 20 mEq in 0.45% Sod 20 MEQ/1,000 ML IV.SOLN 500 MEQ IVCONT (17:00)
--- OUTSIDE RECORDS SUMMARY | 2025-01-21 18:13 | XMS_ITS ---
Author Name Nellie Contreras NP Address [address] [place] [address] Phone [phone] [facility] Care Team Providers Care Records Management Specialist Name Role Phone Nellie Contreras Unavailable [phone] Eli Galvin Unavailable [phone] Reason for Referral Not Available Allergies, adverse reactions, alerts Allergen Type Reaction Severity Status Onset Date Sulfa Antibiotics Allergy to substance (disorder) Unknown Active 2015-04-12 History of medication use Medication Class Instructions Start Date End Date Omeprazole 20 mg Cap delayed rel TAKE 1 CAPSULE BY MOUTH ONCE DAILY 30-60 MINUTES BEFORE A MEAL 2022-05-15 No Data Available traZODone 100 mg Tab 0.5 to 1 tab PO at bedtime 08-25 No Data Available Alendronate Sodium 70 mg Tab take 1 tabl et orally once every week 2022-08-25 No Data Available Voltaren 1 % Gel 2 grams topically to affected area 4 times per day prn 2022-08-25 No Data Available Meloxicam 7.5 mg Tab 1 tablet orally BID PRN pain 2022-09-15 No Data Available Celecoxib 100 mg Cap TAKE 1 CAPSULE BY M OUTH IN THE MORNING AND AT BEDTIME NEEDED FOR PAIN 2023-11-05 No Data Available Celecoxib 100 mg Cap 1 capsule orally da geraldine with food as needed 2023-11-12 No Data Available Nystatin 361410 UNIT/GM Crm 1 applicatio n topically to affected area 2 times per day for 14 days 2023-11-12 No Data Available Diclofenac Sodium 1 % Gel 4 grams topica lly to affected area 4 times per day PRN 2023-11-12 No Data Available VITAMIN D3 1,000 UNIT TABLET TOME 1 TABL ETA POR V A ORAL TODOS LOS D 2023-12-10 No Data Available Gabapentin 100 mg Cap TOME 1 C PSULA POR V A ORAL AL ACOSTARSE CUANDO SEA NECESARIO PARA EL DOLOR 2023-11-16 No Data Available Lidocaine 5 % Patch PLACE 1 PATCH TOPICA LLY DAILY AND LEAVE ON FOR UP TO 12 HOURS 2024-06-18 No Data Available Acetaminophen ER 650 mg Tab ER No Data Available 07-25 No Data Available Cyclobenzaprine 10 mg Tab TAKE 1 TABLET (10 MG) BY MOUTH AT BEDTIME FOR 10 DAYS. 2024-09-15 No Data Available MELATONIN 5 MG TABLET TAKE 1-2 CAPSULES POR V A ORAL TODOS LOS D AL ACOSTARSE CUANDO SEA NECESARIO FOR INSOMNIA 2024-09-15 No Data Available Problem List Problem Status Onset Date Resolved Date Synopsis GERD (gastroesophageal reflux disease) Active 2022-08-25 N/A commend famotidi ne 20 mg twice daily as needed for dyspepsia-- Smoking cessation encouranged-- Dietary and life style changes encouraged-- Calcium/Vit D and osteoporosis surveillance stressed-- Risk of intermediate card tender PPI use discussed-- Antireflux diet: avoid tomatoes, citrus fruits, carbonated or caffeinated beverages, chocolate, peppermints, fatty foods.-- Elevate head of bed 6 on a brick or telephone book-- Do not eat within 4 hours of bedtime-- Strict diabetic monitoring and management 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 N/A with GE RDcommend famotidine 20 mg twice daily as needed for dyspepsia-- Smoking cessation encouranged-- Dietary and life style changes encouraged-- Calcium/Vit D and osteoporosis surveillance stressed-- Risk of intermediate card tender PPI use discussed-- Antireflux diet: avoid tomatoes, citrus fruits, carbonated or caffeinated beverages, chocolate, peppermints, fatty foods.-- Elevate head of bed 6 on a brick or telephone book-- Do not eat within 4 hours of bedtime-- Strict diabetic monitoring and management Tobacco dependence Active 2022-08-25 N/A 1/2 PP D x 50 yearsdiscussed benefits of smoking cessationhe is aware of risksrecommend yearly LDCT of lungs+osteoporosis as sequela 08/25/22: not ready to quit; encouraged to cut down by 1 cig per day Osteoporosis Active 2022-08-25 N/A TIPS for [facility]: If you smoke, quit smoking (this will contribute to bone loss). Avoid ETOH. Ecouraged weight-bearing exercises, such as walking, jogging, and climbing stairs, can help you build strong bones and slow bone loss. Add good sources of calcium- dairy products, almonds, broccoli, kale, canned salmon with bones, sardines and soy products, such as tofu. If you are vit D deficient; take Vit D3 daily 2,000 IU-5,000 IU. 08/25/22: alendronate rx sent to pharmacyrecommend quitting smoking-pt not ready to quit Osteoarthritis, multiple sites Active 2022-08-25 N/A left shoulder fr ozen shoulder -has tried PT in the past referral for Ortho frozen shoulder- Left shoulder rx voltaren Insomnia Active 2022-08-25 N/A >10 years repo rts unable to sleep sometimes staying up 48 hoursSleep hygiene discussed - consistent bedtime, limiting television/email/social media in hours before bedtime - replace with reading/writing or taking a walk; soothing herbal tea at bedtime - limit caffeine; if unable to sleep get up and leave bedroom - participate in other activity until tired again.08/25/22: Start Trazodone, rx sent. start with 50mg PO QHS, can increase to 100mg if 50mg not affective09/15/22: tried trazodone x 2 days-reports this did not help him fall asleep. only made me drowsy the next morning . HOLD trazodone until he has appointment with his PCP. Back pain Active 2023-11-12 N/A RX; Diclofenac cream Continue taking CelecoxibTake medication as ordered, exercise, good posture practices, and other options such as applying heat/cold to help relax muscles and reduce joint pain. Major depressive disorder, recurrent, mild Active 2023-11-12 N/A Phq- 9 score = 5 Notify provider with any changes in behavior, difficulty sleeping, or new/worsening depressive symptoms. Other problems related to medical facilities and other health care Active 2023-11-12 N/A PAIN CO NTINGENCY PLANMember to call for the following symptoms: Decreased mobility/ Fall / Increased pain/ Increased pain meds/ Joint swelling/ StiffnessPlanned intervention: Encourage extra fluid intake / Lidoderm patch 4% to affected area/ Voltaren gel to affected area/ Prednisone 50mg daily for 5 days/ Apply heat to affected area/ Apply ice to affected area Fungal infection of skin Active 2023-11-12 N/A Member reports skin infection that he had in the past on his foot and he was treated for fungal infection. Rx: Nystatin cream sent to pharmacy Encounters Encounters Type Facility Date of Service Diagnosis/Co mplaint New patient,40-59min; chronic exacerbation, 2 stable chronic or 1 acute illness add add modifier 95 for video (do not use for phone, instead use [id number]) [facility] Gastro-esophageal reflux disease without esophagitisMajor depressive disorder, recurrent, mildBarrett's esophagus without dysplasiaAge-related osteoporosis without current pathological fractureInsomnia, unspecifiedPolyosteoarthritis , unspecifiedNicotine dependence, unspecified, uncomplicated New patient,40-59min; chronic exacerbation, 2 stable chronic or 1 acute illness add add modifier 95 for video (do not use for phone, instead use [id number]) [facility] New patient,40-59min; chronic exacerbation, 2 stable chronic or 1 acute illness add add modifier 95 for video (do not use for phone, instead use [id number]) [facility] New patient,40-59min; chronic exacerbation, 2 stable chronic or 1 acute illness add add modifier 95 for video (do not use for phone, instead use [id number]) [facility] New patient,40-59min; chronic exacerbation, 2 stable chronic or 1 acute illness add add modifier 95 for video (do not use for phone, instead use [id number]) [facility] New patient,40-59min; chronic exacerbation, 2 stable chronic or 1 acute illness add add modifier 95 for video (do not use for phone, instead use [id number]) [facility] ([place]25/20[place] New patient,40-59min; chronic exacerbation, 2 stable chronic or 1 acute illness add add modifier 95 for video (do not use for phone, instead use 06759-94) [facility] New patient,40-59min; chronic exacerbation, 2 stable chronic or 1 acute illness add add modifier 95 for video (do not use for phone, instead use 52404-57) [facility] New patient,40-59min; chronic exacerbation, 2 stable chronic or 1 acute illness add add modifier 95 for video (do not use for phone, instead use [id number]) [facility] New patient,40-59min; chronic exacerbation, 2 stable chronic or 1 acute illness add add modifier 95 for video (do not use for phone, instead use 25417-97) [facility] No Data Available [facility]2022 Major depressive disorder, recurrent, mildGastro-esophageal reflux disease without esophagitisBarrett's esophagus without dysplasiaAge-related osteoporosis without current pathological fractureInsomnia, unspecifiedPolyosteoarthritis , unspecifiedNicotine dependence, unspecified, uncomplicated No Data Available [facility] No Data Available [facility] Estab. patient 30-39min; chronic exacerbation, 2 stable chronic or 1 acute illness add add modifier 95 for video, (do not use for phone, instead use 16955-55) [facility]12[place]2023 Major depressive disorder, recurrent, mildGastro-esophageal reflux disease without esophagitisBarrett's esophagus without dysplasiaAge-related osteoporosis without current pathological fractureInsomnia, unspecifiedPolyosteoarthritis , unspecifiedSuperficial mycosis, unspecifiedDorsalgia, unspecifiedOther problems related to medical facilities and other health careNicotine dependence, cigarettes, uncomplicated Estab. patient 30-39min; chronic exacerbation, 2 stable chronic or 1 acute illness add add modifier 95 for video, (do not use for phone, instead use [id number]) [facility] Estab. patient 30-39min; chronic exacerbation, 2 stable chronic or 1 acute illness add add modifier 95 for video, (do not use for phone, instead use 22870-00) [facility] Estab. patient 30-39min; chronic exacerbation, 2 stable chronic or 1 acute illness add add modifier 95 for video, (do not use for phone, instead use [id number]) [facility] Estab. patient 30-39min; chronic exacerbation, 2 stable chronic or 1 acute illness add add modifier 95 for video, (do not use for phone, instead use [id number]) [facility] Estab. patient 30-39min; chronic exacerbation, 2 stable chronic or 1 acute illness add add modifier 95 for video, (do not use for phone, instead use [id number]) [facility] Estab. patient 30-39min; chronic exacerbation, 2 stable chronic or 1 acute illness add add modifier 95 for video, (do not use for phone, instead use [id number]) [facility] Estab. patient 30-39min; chronic exacerbation, 2 stable chronic or 1 acute illness add add modifier 95 for video, (do not use for phone, instead use [id number]) [facility] Estab. patient 30-39min; chronic exacerbation, 2 stable chronic or 1 acute illness add add modifier 95 for video, (do not use for phone, instead use [id number]) [facility] Estab. patient 30-39min; chronic exacerbation, 2 stable chronic or 1 acute illness add add modifier 95 for video, (do not use for phone, instead use [id number]) [facility] Estab. patient 10-29min; 1 minor problem; add add modifier 95 for video, modifier 93 for phone [facility]2024 Gastro-esophageal reflux disease without esophagitisBarrett's esophagus without dysplasiaAge-related osteoporosis without current pathological fractureInsomnia, unspecifiedPolyosteoarthritis , unspecifiedNicotine dependence, unspecified, uncomplicatedSuperficial mycosis, unspecifiedDorsalgia, unspecifiedMajor depressive disorder, recurrent, mildOther problems related to medical facilities and other health care Estab. patient 10-29min; 1 minor problem; add add modifier 95 for video, modifier 93 for phone [facility] Estab. patient 10-29min; 1 minor problem; add add modifier 95 for video, modifier 93 for phone [facility]14[place]2024 Vital Signs Date of Collection Vitals 2022-08-25 11:48:23 Height - 165.1 cmWei ght - 63.5 kgBody Mass Index (BMI) - 23.3 kg/m2BP Diastolic - 74.0 mm[Hg]BP Systolic - 118.0 mm[Hg]Pain Scale - 4.0 {score} 2022-09-15 11:19:39 Pain Scale - 3.0 {sc ore} 2023-11-12 12:04:30 Weight - 68.95 kgBod y Mass Index (BMI) - 25.29 kg/m2BP Diastolic - 68.0 mm[Hg]BP Systolic - 138.0 mm[Hg]Pain Scale - 10.0 {score} Social History Social History Social History Observation Description Effec tive Time Current Smoking Status Current some day smoker 2 Sex Male Gender identity Man History of Procedures Procedures Service Procedure code Service date Servicing provider Phone# New patient,40-59min; chronic exacerbation, 2 stable chronic or 1 acute illness add add modifier 95 for video (do not use for phone, instead use [id number]) 61757 2022-08-25 No Data Available No Data Availa ble Pain Assessment - Pain Documented on a Pain Scale (1125F) 1125F 2022-08-25 No Data Available No Data Lea ilable Medication List Documented (1159F) 1159F 2022-08-25 No Data Available No Data Lea ilable Medication Review by prescribing provider or pharmacist documented (1160F) 1160F 2022-08-25 No Data Available No Data Lea ilable Advance Care Directive Advance care planning discussion documented in the medical record (1158F) 1158F 2022-08-25 No Data Available No Data Availa ble BMI obtained (3008F) 3008F 2022-08-25 No Data Availab le No Data Available Advance care planning discussed and documented advance care plan or surrogate decision-maker was documented in the medical record. (1123F) 1123F 2022-08-25 No Data Available No Data Availa ble DBP <80 (3078F) 3078F 2022-08-25 No Data Available No Data Available Functional Status Assessed (1170F) 1170F 2022-08-25 No Data Available No Data Avail able SBP < 130 (3074F) 3074F 2022-08-25 No Data Available No Data Available No Data Available [id number] 2022-09-15 No Data Available No Data Available Pain Assessment - Pain Documented on a Pain Scale (1125F) 1125F 2022-09-15 No Data Available No Data Lea ilable Medication List Documented (1159F) 1159F 2022-09-15 No Data Available No Data Lea ilable Estab. patient 30-39min; chronic exacerbation, 2 stable chronic or 1 acute illness add add modifier 95 for video, (do not use for phone, instead use 65539-51) 34291 2023-11-12 No Data Available No Data Availa ble Medication List Documented (1159F) 1159F 2023-11-12 No Data Available No Data Lea ilable Functional Status Assessed (1170F) 1170F 2023-11-12 No Data Available No Data Avail able Pain Assessment - Pain Documented on a Pain Scale (1125F) 1125F 2023-11-12 No Data Available No Data Lea ilable Advance Care Directive Advance care planning discussion documented in the medical record (1158F) 1158F 2023-11-12 No Data Available No Data Availa ble BMI obtained (3008F) 3008F 2023-11-12 No Data Availab le No Data Available SBP 130-139 (3075F) 3075F 2023-11-12 No Data Availabl e No Data Available DBP <80 (3078F) 3078F 2023-11-12 No Data Available No Data Available No Data Available [id number] 2023-11-12 No Data Available No Data Available Advance care planning discussed and documented advance care plan or surrogate decision-maker was documented in the medical record. (1123F) 1123F 2023-11-12 No Data Available No Data Availa ble Estab. patient 10-29min; 1 minor problem; add add modifier 95 for video, modifier 93 for phone 31332 2024-11-14 No Data Available No Data Availa ble Medication List Documented (1159F) 1159F 2024-11-14 No Data Available No Data Lea ilable Medication Review by prescribing provider or pharmacist documented (1160F) 1160F 2024-11-14 No Data Available No Data Lea ilable Functional Status Functional Category Effective Dates Do you worry about falling? Yes ADL: Bathing Needs Assistanc e , Dressing Needs Assistance , Eating Independent , Ambulation Independent , Transferring Independent and Toileting Independent 2023-11-12 IADL: Medication Needs Pérez tance , Meal Prep Needs Assistance , Shopping Needs Assistance , Driving or Public Transport Needs Assistance , Housework Needs Assistance 2023-11-12 DME used with ambulation: None 2023-10-22 3 Do you feel unsteady on your feet? Yes Near falls within the last 6 months? Non e 2023-11-12 How many falls within the last 6 months? None 2023-11-12 Social Supports - # of Inter actions with Friends/Family in a typical week: 2023-11-12 Mental Status Status Date Alert and Orieneted x [address], [address] an d time 2023-11-12 Assessments Date of Service Assessments 2022-08-25 11:48:23 GERD (gastroesophage al reflux disease)MDD (major depressive disorder), recurrent episode, mildBarrett esophagusOsteoporosisInsomniaOsteoarthritis, multiple sitesTobacco dependence 2022-09-15 11:19:39 GERD (gastroesophage al reflux disease)MDD (major depressive disorder), recurrent episode, mildBarrett esophagusOsteoporosisInsomniaOsteoarthritis, multiple sitesTobacco dependence 2023-11-12 12:04:30 GERD (gastroesophage al reflux disease)Denton esophagusOsteoporosisInsomniaOsteoarthritis, multiple sitesTobacco dependenceFungal infection of skinBack painMajor depressive disorder, recurrent, mildOther problems related to medical facilities and other health care 2024-11-14 06:33:37 GERD (gastroesophage al reflux disease)Denton esophagusOsteoporosisInsomniaOsteoarthritis, multiple sitesTobacco dependenceFungal infection of skinBack painMajor depressive disorder, recurrent, mildOther problems related to medical facilities and other health care Plan of Care Date of Service Plans 2022-08-25 11:48:23 Medication Review by prescribing provider or pharmacist documented (1160F)Medication List Documented (1159F)Functional Status Assessed (1170F)Advance Care Directive Advance care planning discussion documented in the medical record (1158F)BMI obtained (3008F)sbDBP <80 (3078F)Televideo new patient,40-59min; chronic exacerbation, 2 stable chronic or 1 acute illness add modifier 95Advance care planning discussed and documented advance care plan or surrogate decision-maker was documented in the medical record. (1123F)Pain Assessment - Pain Documented (1125F)Continue to see PCP. Follow-up with [facility] as needed for any acute or disease education needs that may arise.commend famotidine 20 mg twice daily as needed for dyspepsia-- Smoking cessation encouranged-- Dietary and life style changes encouraged-- Calcium/Vit D and osteoporosis surveillance stressed-- Risk of intermediate card tender PPI use discussed-- Antireflux diet: avoid tomatoes, citrus fruits, carbonated or caffeinated beverages, chocolate, peppermints, fatty foods.-- Elevate head of bed 6 on a brick or telephone book-- Do not eat within 4 hours of bedtime-- Strict diabetic monitoring and managementwith GERDcommend famotidine 20 mg twice daily as needed for dyspepsia-- Smoking cessation encouranged-- Dietary and life style changes encouraged-- Calcium/Vit D and osteoporosis surveillance stressed-- Risk of prison PPI use discussed-- Antireflux diet: avoid tomatoes, citrus fruits, carbonated or caffeinated beverages, chocolate, peppermints, fatty foods.-- Elevate head of bed 6 on a brick or telephone book-- Do not eat within 4 hours of bedtime-- Strict diabetic monitoring and managementTIPS for Bone Health: If you smoke, quit smoking (this will contribute to bone loss). Avoid ETOH. Ecouraged weight-bearing exercises, such as walking, jogging, and climbing stairs, can help you build strong bones and slow bone loss. Add good sources of calcium- dairy products, almonds, broccoli, kale, canned salmon with bones, sardines and soy products, such as tofu. If you are vit D deficient; take Vit D3 daily 2,000 IU-5,000 IU. 08/25/22: alendronate rx sent to pharmacyrecommend quitting smoking-pt not ready to quit>10 years reports unable to sleep sometimes staying up 48 hoursSleep hygiene discussed - consistent bedtime, limiting television/email/social media in hours before bedtime - replace with reading/writing or taking a walk; soothing herbal tea at bedtime - limit caffeine; if unable to sleep get up and leave bedroom - participate in other activity until tired again.08/25/22: Start Trazodone, rx sent. start with 50mg PO QHS, can increase to 100mg if 50mg not affectiveleft shoulder frozen shoulder -has tried PT in the past referral for Ortho frozen shoulder- Left shoulder rx voltaren1/2 PPD x 50 yearsdiscussed benefits of smoking cessationhe is aware of risksrecommend yearly LDCT of lungs+osteoporosis as sequela 08/25/22: not ready to quit; encouraged to cut down by 1 cig per day 2022-09-15 11:19:39 Phone (patient, pare nt, or guardian); 5-10 minutes of medical discussion (no modifier 95)Continue to see PCP. Follow-up with [facility] as needed for any acute or disease education needs that may arise 11/09.commend famotidine 20 mg twice daily as needed for dyspepsia-- Smoking cessation encouranged-- Dietary and life style changes encouraged-- Calcium/Vit D and osteoporosis surveillance stressed-- Risk of intermediate card tender PPI use discussed-- Antireflux diet: avoid tomatoes, citrus fruits, carbonated or caffeinated beverages, chocolate, peppermints, fatty foods.-- Elevate head of bed 6 on a brick or telephone book-- Do not eat within 4 hours of bedtime-- Strict diabetic monitoring and managementwith GERDcommend famotidine 20 mg twice daily as needed for dyspepsia-- Smoking cessation encouranged-- Dietary and life style changes encouraged-- Calcium/Vit D and osteoporosis surveillance stressed-- Risk of prison PPI use discussed-- Antireflux diet: avoid tomatoes, citrus fruits, carbonated or caffeinated beverages, chocolate, peppermints, fatty foods.-- Elevate head of bed 6 on a brick or telephone book-- Do not eat within 4 hours of bedtime-- Strict diabetic monitoring and managementTIPS for Bone Health: If you smoke, quit smoking (this will contribute to bone loss). Avoid ETOH. Ecouraged weight-bearing exercises, such as walking, jogging, and climbing stairs, can help you build strong bones and slow bone loss. Add good sources of calcium- dairy products, almonds, broccoli, kale, canned salmon with bones, sardines and soy products, such as tofu. If you are vit D deficient; take Vit D3 daily 2,000 IU-5,000 IU. 08/25/22: alendronate rx sent to pharmacyrecommend quitting smoking-pt not ready to quit>10 years reports unable to sleep sometimes staying up 48 hoursSleep hygiene discussed - consistent bedtime, limiting television/email/social media in hours before bedtime - replace with reading/writing or taking a walk; soothing herbal tea at bedtime - limit caffeine; if unable to sleep get up and leave bedroom - participate in other activity until tired again.08/25/22: Start Trazodone, rx sent. start with 50mg PO QHS, can increase to 100mg if 50mg not affective09/15/22: tried trazodone x 2 days-reports this did not help him fall asleep. only made me drowsy the next morning . HOLD trazodone until he has appointment with his PCP.left shoulder frozen shoulder -has tried PT in the past referral for Ortho frozen shoulder- Left shoulder rx voltaren1/2 PPD x 50 yearsdiscussed benefits of smoking cessationhe is aware of risksrecommend yearly LDCT of lungs+osteoporosis as sequela 08/25/22: not ready to quit; encouraged to cut down by 1 cig per day 2023-11-12 12:04:30 Televideo 30-39min; chronic exacerbation, 2 stable chronic or 1 acute illness add modifier 95Functional Status Assessed (1170F)BMI obtained (3008F)Advance Care Directive Advance care planning discussion documented in the medical record (1158F)Advance care planning discussed and documented advance care plan or surrogate decision-maker was documented in the medical record. (1123F)SBPMedication Review by prescribing provider or pharmacist documented (1160F)DBPMedication List Documented (1159F)Pain Assessment - Pain Documented (1125F)Continue to see PCP. Follow-up with [facility] as needed for any acute or disease education needs that may arise.commend famotidine 20 mg twice daily as needed for dyspepsia-- Smoking cessation encouranged-- Dietary and life style changes encouraged-- Calcium/Vit D and osteoporosis surveillance stressed-- Risk of prison PPI use discussed-- Antireflux diet: avoid tomatoes, citrus fruits, carbonated or caffeinated beverages, chocolate, peppermints, fatty foods.-- Elevate head of bed 6 on a brick or telephone book-- Do not eat within 4 hours of bedtime-- Strict diabetic monitoring and managementwith GERDcommend famotidine 20 mg twice daily as needed for dyspepsia-- Smoking cessation encouranged-- Dietary and life style changes encouraged-- Calcium/Vit D and osteoporosis surveillance stressed-- Risk of prison PPI use discussed-- Antireflux diet: avoid tomatoes, citrus fruits, carbonated or caffeinated beverages, chocolate, peppermints, fatty foods.-- Elevate head of bed 6 on a brick or telephone book-- Do not eat within 4 hours of bedtime-- Strict diabetic monitoring and managementTIPS for Bone Health: If you smoke, quit smoking (this will contribute to bone loss). Avoid ETOH. Ecouraged weight-bearing exercises, such as walking, jogging, and climbing stairs, can help you build strong bones and slow bone loss. Add good sources of calcium- dairy products, almonds, broccoli, kale, canned salmon with bones, sardines and soy products, such as tofu. If you are vit D deficient; take Vit D3 daily 2,000 IU-5,000 IU. 08/25/22: alendronate rx sent to pharmacyrecommend quitting smoking-pt not ready to quit>10 years reports unable to sleep sometimes staying up 48 hoursSleep hygiene discussed - consistent bedtime, limiting television/email/social media in hours before bedtime - replace with reading/writing or taking a walk; soothing herbal tea at bedtime - limit caffeine; if unable to sleep get up and leave bedroom - participate in other activity until tired again.08/25/22: Start Trazodone, rx sent. start with 50mg PO QHS, can increase to 100mg if 50mg not affective09/15/22: tried trazodone x 2 days-reports this did not help him fall asleep. only made me drowsy the next morning . HOLD trazodone until he has appointment with his PCP.left shoulder frozen shoulder -has tried PT in the past referral for Ortho frozen shoulder- Left shoulder rx voltaren1/2 PPD x 50 yearsdiscussed benefits of smoking cessationhe is aware of risksrecommend yearly LDCT of lungs+osteoporosis as sequela 08/25/22: not ready to quit; encouraged to cut down by 1 cig per dayMeyeni reports skin infection that he had in the past on his foot and he was treated for fungal infection. Rx: Nystatin cream sent to [facility]; Diclofenac cream Continue taking CelecoxibTake medication as ordered, exercise, good posture practices, and other options such as applying heat/cold to help relax muscles and reduce joint pain.Phq- 9 score = 5Notify provider with any changes in behavior, difficulty sleeping, or new/worsening depressive symptoms.PAIN CONTINGENCY PLANMember to call for the following symptoms: Decreased mobility/ Fall / Increased pain/ Increased pain meds/ Joint swelling/ StiffnessPlanned intervention: Encourage extra fluid intake / Lidoderm patch 4% to affected area/ Voltaren gel to affected area/ Prednisone 50mg daily for 5 days/ Apply heat to affected area/ Apply ice to affected area 2024-11-14 06:33:37 Medication Review by prescribing provider or pharmacist documented (0139F)Medication List Documented (4547F)Estab. patient 20-29min; 1 stable chronic or 2 minor; add add modifier 95 for video, modifier 93 for phoneContinue to see PCP. Follow-up with [facility] as needed for any acute or disease education needs that may arise.commend famotidine 20 mg twice daily as needed for dyspepsia-- Smoking cessation encouranged-- Dietary and life style changes encouraged-- Calcium/Vit D and osteoporosis surveillance stressed-- Risk of prison PPI use discussed-- Antireflux diet: avoid tomatoes, citrus fruits, carbonated or caffeinated beverages, chocolate, peppermints, fatty foods.-- Elevate head of bed 6 on a brick or telephone book-- Do not eat within 4 hours of bedtime-- Strict diabetic monitoring and managementwith GERDcommend famotidine 20 mg twice daily as needed for dyspepsia-- Smoking cessation encouranged-- Dietary and life style changes encouraged-- Calcium/Vit D and osteoporosis surveillance stressed-- Risk of intermediate card tender PPI use discussed-- Antireflux diet: avoid tomatoes, citrus fruits, carbonated or caffeinated beverages, chocolate, peppermints, fatty foods.-- Elevate head of bed 6 on a brick or telephone book-- Do not eat within 4 hours of bedtime-- Strict diabetic monitoring and managementTIPS for Bone Health: If you smoke, quit smoking (this will contribute to bone loss). Avoid ETOH. Ecouraged weight-bearing exercises, such as walking, jogging, and climbing stairs, can help you build strong bones and slow bone loss. Add good sources of calcium- dairy products, almonds, broccoli, kale, canned salmon with bones, sardines and soy products, such as tofu. If you are vit D deficient; take Vit D3 daily 2,000 IU-5,000 IU. 08/25/22: alendronate rx sent to pharmacyrecommend quitting smoking-pt not ready to quit>10 years reports unable to sleep sometimes staying up 48 hoursSleep hygiene discussed - consistent bedtime, limiting television/email/social media in hours before bedtime - replace with reading/writing or taking a walk; soothing herbal tea at bedtime - limit caffeine; if unable to sleep get up and leave bedroom - participate in other activity until tired again.08/25/22: Start Trazodone, rx sent. start with 50mg PO QHS, can increase to 100mg if 50mg not affective09/15/22: tried trazodone x 2 days-reports this did not help him fall asleep. only made me drowsy the next morning . HOLD trazodone until he has appointment with his PCP.left shoulder frozen shoulder -has tried PT in the past referral for Ortho frozen shoulder- Left shoulder rx voltaren1/2 PPD x 50 yearsdiscussed benefits of smoking cessationhe is aware of risksrecommend yearly LDCT of lungs+osteoporosis as sequela 08/25/22: not ready to quit; encouraged to cut down by 1 cig per day reports skin infection that he had in the past on his foot and he was treated for fungal infection. Rx: Nystatin cream sent to [facility]; Diclofenac cream Continue taking CelecoxibTake medication as ordered, exercise, good posture practices, and other options such as applying heat/cold to help relax muscles and reduce joint pain.Phq- 9 score = 5Notify provider with any changes in behavior, difficulty sleeping, or new/worsening depressive symptoms.PAIN CONTINGENCY PLANMember to call for the following symptoms: Decreased mobility/ Fall / Increased pain/ Increased pain meds/ Joint swelling/ StiffnessPlanned intervention: Encourage extra fluid intake / Lidoderm patch 4% to affected area/ Voltaren gel to affected area/ Prednisone 50mg daily for 5 days/ Apply heat to affected area/ Apply ice to affected area Goals Date Goal 2023-11-12 Continue taking medi cations as directed and keep all follow up appointments with established PCP and Specialist. Health Concerns Date Concern 2024-11-14 Patient/Guardian agr eed to visit via telehealth. Today, patient has chief complaint of: annual visit.Visit completed via:[x] audio and video; [ ] audio onlyInformed verbal consent was obtained from this patient to communicate and provide care using virtual and other telecommunications tools. This patient has been explained the risks, if any, related to the encounter. I explained that care provided through video or audio communication cannot replace the need for physical examination or an in-person visit for some disorders or urgent problems. 2024-11-14 Concerns for today's visit:No acute concerns or needs.Reviewed allergies, medications, active medical conditions, past medical and surgical history, social history. 2024-11-14 Most recent hospital stay or ER visit:No ER visits or hospitalizations documented in [facility] in last year.Member denies ER visits or hospitalizations in last year.Discussed our goal of helping the member have more days at home rather than in the ER or the hospital. 2024-11-14 Open HEDIS Measures: No open measures
--- OUTSIDE RECORDS SUMMARY | 2025-01-21 18:14 | XMS_ITS | Encounter Summary ---
Author Organization [employer] Address [address] [place] [address] Care Team Providers Care Booth Usher Name Role Phone Jacqueline Vu DO Primary Care Provider [facility] Primary Care Provider [phone] Reason for Visit * Reason Onset Date Comments Nurse Triage 10/04/2022 Encounter Details Date Type Department Care Team (Late st Contact Info) Description 10/04/2022 Telephone [facility] [address] [place] [address] Jacqueline Vu DO [address] [place] [address] Nurse Triage Social History Tobacco Use Types Packs/Day Years Used Date Smoking Tobacco: Never Assessed Sex and Gender Information Value Date Recorded Sex Assigned at Male 12/19/2021 10:16 AM EDT Legal Sex Male 10:16 AM EDT Gender Identity Male 12/19/2021 10:16 AM EDT Sexual Orientation Straight 12/19/2021 10 :16 AM EDT documented as of this encounter Miscellaneous Notes * Telephone Encounter - Nunu Juarez RN - 10/04/2022 3:56 PM EDT Triage call with [facility] ID [id number] Pt has Ailyn Arrington speaking for him. Pt has had generalized body aches especially bilateral hands. Pt isn't sleeping well at night reports being awake most of the nights and is not sleeping during the day. Pt is reported to be drinking adequate liquids during the days. Advised to drink 6-8 glasses of liquid including some warm drinks, broth or decaf tea. Pt doesn't have MEGAN symptoms neg for fever, cough, sore throat. Pt requests to see provider for assessment because Pt doesn't feel well . Pt and Ailyn agree with disposition and Apt with Dr. Hilliard 10/13 @ 1030am. Insurance is verifiedas active prior to booking. Multiple (2) protocols were used on this call. Disposition for Call: See in Office or Video Visit within 2 Weeks Protocol Used: Muscle Aches and Body Pain (Adult) Protocol-Based Disposition: See in Office or Video Visit within 2 Weeks Video visit not offered Positive Triage Question: * Muscle aches or body pains are a chronic symptom (recurrent or ongoing AND present > 4 weeks) * All higher-acuity triage questions were negative Care Advice Discussed: * Reassurance and Education - Mild Muscle Pain * Pain Medicines * Pain Medicines - Extra Notes and Warnings * Reasons To Call Back - Fever occurs - Pain lasts longer than 7 days - You become worse Protocol Used: Dizziness (Adult) Protocol-Based Disposition: See in Office or Video Visit within 2 Weeks Positive Triage Question: * Dizziness not present now, but is a chronic symptom (recurrent or ongoing AND lasting > 4 weeks) * All higher-acuity triage questions were negative Care Advice Discussed: * Reassurance and Education - Dizziness From Not Drinking Enough Liquids * Drink Fluids * Reasons To Call Back - After 2 hours of rest and fluids And still feeling dizzy. - Passes out (faints). - You become worse. * Telephone Encounter - Liz Manzano - 10/04/2022 3:35 PM EDT Symptoms: Sleeping Difficulty, Arm Pain - Not From Injury, Chest Pain - Adult Outcome: Schedule an urgent appointment (within 1 hour) or talk to a nurse or provider soon Reason: Caller denied all higher acuity questions The caller accepted this outcome Please contact pt at [phone] (Indonesian) documented in this encounter Plan of Treatment Not on file documented as of this encounter Visit Diagnoses Not on filedocumented in this encounter Care Teams Booth Usher Relationship Specialty Start Date End Date Jacqueline Vu DO [address] [place] [address] PCP - General Family Medicine 10/04/20 07/25/23 YoakumSarah hayward FNP [address] [place] [address] PCP - General Family Medicine 09/27/23 documented as of this encounter
--- OUTSIDE RECORDS SUMMARY | 2025-01-21 18:14 | XMS_ITS | Clinical Summary ---
Author Organization [employer] Address [address] [place] [address] [address] [place] [address] Care Team Providers Care Sand Mill Grinder Name Role Phone Annamarie [facility] Primary Care Provider [phone] Allergies Active Allergy Reactions Criticality Noted Date Comments Sulfa Antibiotics 04/12/2015 Medications cyclobenzaprine (Flexeril) 10 MG tablet Take 1 tablet (10 mg) by mouth at bedtime for 10 days. 10 tablet 09/16/19 25 Active melatonin 5 MG tablet TAKE 1-2 CAPSULES BY MOUTH AT BEDTIME NEEDED FOR INSOMNIA 180 tablet 10/10/19 25 Active omeprazole (PriLOSEC) [address] capsuleIndicati ons:Gastroesoph ageal reflux disease, unspecified whether esophagitis present TAKE 1 CAPSULE BY MOUTH ONCE DAILY 30-60 MINUTES BEFORE A MEAL 90 capsule 1 10/25/19 25 Active gabapentin (Neurontin) 100 MG capsuleIndicati ons:Neuropathic pain TOME 1 CAPSULA POR VIA ORAL AL ACOSTARSE CUANDO SEA NECESARIO PARA EL DOLOR 30 capsule 11 12/02/19 25 Active cholecalciferol (Vitamin D3) 25 MCG (1000 UT) tabletIndicatio ns:Osteoporosis , unspecified osteoporosis type, unspecified pathological fracture presence TOME 1 TABLETA POR VIA ORAL TODOS LOS WEAVER 90 tablet 3 12/09/19 25 Active celecoxib (CeleBREX) 200 MG capsule Take 1 capsule (200 mg) by mouth Once per day. 60 capsule 12/27/19 25 Active acetaminophen (Tylenol 8 Hour) 650 MG ER tablet TAKE 1 TABLET BY MOUTH EVERY 8 HOURS NEEDED FOR MILD PAIN 30 tablet 2 12/27/19 25 Active lidocaine (Lidoderm) 5 % patchIndication s:Chronic bilateral low back pain, unspecified whether sciatica present PLACE 1 PATCH TOPICALLY DAILY AND LEAVE ON FOR UP TO 12 HOURS 30 patch 1 01/13/20 25 Active lidocaine (Lidoderm) 5 % patchIndication s:Chronic bilateral low back pain, unspecified whether sciatica present PLACE 1 PATCH TOPICALLY DAILY AND LEAVE ON FOR UP TO 12 HOURS 30 patch 1 10/30/19 25 025 Discontinued acetaminophen (Tylenol 8 Hour) 650 MG ER tablet TAKE 1 TABLET BY MOUTH EVERY 8 HOURS NEEDED FOR MILD PAIN 30 tablet 11/13/19 25 025 Discontinued(Re order (will not trigger notification to Pharmacy)) Active Problems Problem Noted Date Diagnosed Date Lumbar radiculopathy 09/15/2024 Assessment & Plan (09/15/2024 2:53 PM EDT): Toradol injection today. Increase celebrex to 200 mg daily + Tylenol/Flexeril nightly x 1 week then as needed pain. 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 Chronic back pain 10/20/2011 Insomnia 10/20/2011 Assessment & Plan (09/15/2024 2:54 PM EDT): Continue gabapentin as prescribed Use melatonin 5 to 10 mg nightly as needed insomnia Advised to use Tylenol and Flexeril the next 2 weeks as needed pain Follow-up with PCP Osteoporosis 10/20/2011 Resolved Problems Problem Noted Date Diagnosed Date Resolved Date Major depressive disorder 06/20/2022 Chronic obstructive lung disease 11/08/2012 10/29/2023 Hyperlipidemia 10/20/2011 10/29/2023 Peripheral arterial occlusive disease 10/20/2011 10/29/2023 Encounters Date Type Department Care Team Description 01/11/2025 Refill [facility] [address] [place] [address] AnnamarieSarah hayward, SERVICE DELIVERY CONSULTANT Chronic bilateral low back pain, unspecified whether sciatica present 12/25/2024 Refill [facility]INE [address] [place] [address] AnnamarieSarah hayward FNP 12/06/2024 Refill [facility] MED[facility]INE [address] [place] [address] [facility] Osteoporosis, unspecified osteoporosis type, unspecified pathological fracture presence 11/29/2024 Refill [facility]INE [address] [facility] [place] [address] Lyman Sarah, [facility] Neuropathic pain 11/12/2024 Refill [facility]INE [address] [place] [address] Lyman Sarah, SERVICE DELIVERY CONSULTANT 10/29/2024 Refill [facility]INE [address] [place] [address] [facility] Chronic bilateral low back pain, unspecified whether sciatica present 10/24/2024 Refill [facility] [address] [place] [address] [facility] Gastroesophageal reflux disease, unspecified whether esophagitis present from Last 3 Months Immunizations Immunization Administration Dates Next Due Influenza High-dose Quadriva lent Preservative Free 11/08/2019 Influenza injectable quadriv alent IIV4 with preservative 12/05/2016 Influenza injectable quadriv alent preservative free 10/20/2014 Influenza, High Dose Seasona l, Preservative Free 12/02/2018,12/27/2017,12/24/2015 Influenza, Split (incl. ady fied surface antigen) 11/08/2012,10/20/2011 Moderna Covid-19 Vaccine 12+ 09/01/2020,08/19/19 21 Pneumococcal Conjugate PCV 13 12/02/2018, 017 Pneumococcal Polysaccharide PPSV23 12/27/2017,,02/17/2011 TD (adult), 2 Lf tetanus tox oid, preservative free, adsorbed 07/16/2002 Tdap 12/24/2015,10/20/2011 Social History Tobacco Use Types Packs/Day Years Used Date Smoking Tobacco: Every Day Cigarettes Tobacco Cessation:Ready to Q uit: Not Asked; Counseling Given: Not Answered Alcohol Use Standard Drinks/Week Comments Never 0 (1 standard drink = 0.6 oz pur e alcohol) Housing Stability Answer Date Recorded What is your housing situation today? I have elsa reyna 10/29/[address] you li ve. Do you have problems with any of the following? None of the above 10/29/2023 Food Insecurity Answer Date Recorded Within the past 12 months, y ou worried that your food would run out before you got money to buy more: Never True 10/29/2023 Within the past 12 months,th e food you bought just didn't last and you didn't have enough money to get more: Never True 10/2023 Transportation Answer Date Recorded In the past 12 months, has l ack of transportation kept you from medical appts, meetings, work or from getting things needed for daily living? No 10/29/2023 Utilities Answer Date Recorded In the past 12 months, has t he electric, gas, oil or water company threatened to shut off services in your home? No 10/29/2023 Depression Answer Date Recorded Patient Health Questionnaire-2 Score 2 10/29/2023 Internet Access Answer Date Recorded Internet Access Q1 Yes 10/29/2023 Internet Access Q2 Not on file 10/29/2023 Sex and Gender Information Value Date Recorded Sex Assigned at Male 12/19/2021 10:16 AM EDT Legal Sex Male 10:16 AM EDT Gender Identity Male 12/19/2021 10:16 AM EDT Sexual Orientation Straight 12/19/2021 10 :16 AM EDT Last Filed Vital Signs Vital Sign Reading Time Taken Comments Blood Pressure 126/72 09/15/2024 2:31 PM EDT Pulse 75 09/15/2024 2:31 PM EDT Temperature 36.8 C (98.2 F) 09/15/2024 2:31 PM EDT Respiratory Rate 18 09/15/2024 2:31 PM EDT Oxygen Saturation 98% 09/15/2024 2:31 PM EDT Inhaled Oxygen Concentration - - Weight 71.7 kg (158 lb) 09/15/2024 2:31 PM EDT Height 167.6 cm (5' 6 ) 10/29/2023 10:55 AM EDT Body Mass Index 25.5 10/29/2023 10:55 AM EDT Plan of Treatment Health Maintenance Due Date Last Done Comments Alcohol/Substance Use Screening 1957 Zoster Vaccines (1 of 2) 12/11/1997 RSV Patients and Patients Aged 60 years or older (1 - 1-dose 75+ series) 12/11/2022 COVID-19 Vaccine ( season) 2024 09/01/2020, 08/18/2020, 07/05/2020 Influenza Vaccine (#1) 2024 0, 12/02/2018, 12/27/2017, Additional history exists Depression Screening 10/28/2024 10/29/2023, 10/29/19 24 SDOH Screening 10/28/2024 10/29/2023 Tobacco Screening 09/17/2025 09/17/2024 DTaP/Tdap/Td Vaccines (3 - Td or Tdap) 12/23/2025 12/24/2015, 10/20/2011, 07/16/2002 Lipid Panel 10/28/2028 10/29/2023, 10/04/2020 Pneumococcal Vaccine: 50+ Years Completed 12/02/2018, 12/27/2017, 12/05/2016, Additional history exists Hepatitis C Screening Completed 10/29/2023 HIB Vaccines Aged Out No longer eligi ble based on patient's age to complete this topic HPV Vaccines Aged Out No longer eligi ble based on patient's age to complete this topic Hepatitis A Vaccines Aged Out No long er eligible based on patient's age to complete this topic Hepatitis B Vaccines Aged Out No long er eligible based on patient's age to complete this topic IPV Vaccines Aged Out No longer eligi ble based on patient's age to complete this topic Meningococcal B Vaccine Aged Out No l onger eligible based on patient's age to complete this topic Meningococcal Vaccine Aged Out No estela lavon eligible based on patient's age to complete this topic RSV under 20 months Aged Out No longe r eligible based on patient's age to complete this topic Rotavirus Vaccines Aged Out No longer eligible based on patient's age to complete this topic Procedures Procedure Name Priority Date/Time Associated Diagnosis Comments HEPATITIS C AB W/REFL TO HCV RNA, QN, PCR Routine 10/29/2023 12:12 PM EDT Healthcare maintenance LIPID PANEL, STANDARD Routine 10/29/2023 12:12 PM EDT Healthcare maintenance from Last 3 Months or Most Recently Relevant to Health Maintenance Results * Hepatitis C Antibody with Reflex to HCV, RNA, Quantitative, Real-Time PCR (10/29/2023 12:12 PM EDT) Hepatitis C Antibody Nonreactive Nonreactive [facility] Comment:Antibodies to HCV no t detected; does not exclude early acuteHCV infection. Blood Venous blood specimen / Unknown 10/29/2023 12:12 PM EDT 10/29/2023 1:12 PM EDT [facility] LAB BLOOD ORDERABLES Final Re sult [facility] [address] [place] [phone] * (ABNORMAL) Lipid Panel, Standard (10/29/2023 12:12 PM EDT) Triglycerides 89 <150 mg/dL [facility] Comment:Desirable Triglyceri de: less than 150 mg/dLBorderline High Triglyceride 150-199 mg/dLHigh Triglyceride: 200-499 mg/dLVery High Triglyceride: greater than or equal to 5OO mg/dL Cholesterol 193 <200 mg/dL [facility] Comment:Desirable Cholestero l: less than 200 mg/dLBorderline High Cholesterol: 200-239 mg/dLHigh Cholesterol: greater than 239 mg/dL LDL Cholesterol Calculated 122(H) <100 mg/dL [facility] Comment:Desirable LDL: less than 100 mg/dLNear Optimal/Above Optimal LDL: 110- 129 mg/dLBorderline High LDL: 130-159 mg/dLHigh LDL: 160-189 mg/dLVery High LDL: greater than or equal to 190 mg/dL HDL Cholesterol 54 >40 mg/dL [facility] Comment:Desirable HDL: great er than 40 mg/dL Note: This HDL assay may give artificially low results in patients with liver disease. Blood Venous blood specimen / Unknown 10/29/2023 12:12 PM EDT 10/29/2023 1:12 PM EDT [facility] LAB BLOOD ORDERABLES Final Re sult [facility] [address] [place] [address] [phone] from Last 3 Months or Most Recently Relevant to Health Maintenance Insurance [facility] DUAL COMPLETE Care Teams Sand Mill Grinder Relationship Specialty Start Date End Date [employer] [facility] [address] [place] [id number] PCP - General Family Medicine 09/27/23
--- OUTSIDE RECORDS SUMMARY | 2025-01-21 18:14 | XMS_ITS | Encounter Summary ---
Author Organization [employer] Address [address] [facility] 7[address] [place] [address] Care Team Providers Care Acoustic Warfare Analyst Name Role Phone [facility] Primary Care Provider [phone] Reason for Visit * Reason Comments Med Refill Encounter Details Date Type Department Care Team (Late st Contact Info) Description 09/11/2024 Refill [facility] [address] [place], [place] [id number] [facility] [address] [place], [place] [id number] Osteoporosis, unspecified osteoporosis type, unspecified pathological fracture presence Social History Tobacco Use Types Packs/Day Years Used Date Smoking Tobacco: Every Day Cigarettes Alcohol Use Standard Drinks/Week Comments Never 0 [...] AM EDT documented as of this encounter Plan of Treatment Not on file documented as of this encounter Visit Diagnoses Diagnosis Osteoporosis, unspecified osteoporosis type, unspecified pathological fracture presence documented in this encounter Care Teams Acoustic Warfare Analyst Relationship Specialty Start Date End Date Sarah De Luna FNP [address] [place] [id number] PCP - General Family Medicine 09/27/23 documented as of this encounter
--- OUTSIDE RECORDS SUMMARY | 2025-01-21 18:14 | XMS_ITS | Patient Health Record ---
Author Organization [facility] Address [address] [place] [address] Care Team Providers Care Manager Custom Name Role Phone Ludwig Damon Unavailable [phone] Reason For Referral No Information Plan Of Treatment No Information
--- OUTSIDE RECORDS SUMMARY | 2025-01-21 18:14 | XMS_ITS | Encounter Summary ---
Author Organization [employer] Address [address] [place] [address] 7[address] [place] [address] Care Team Providers Care Glassware Finisher Name Role Phone Jacqueline Vu DO Primary Care Provider [phone] [facility] Primary Care Provider [phone] Encounter Details Date Type Department Care Team (Latest Contact Info) Description 09/09/2018 Abstract C CONVERSIONS Dental, Provider, DDS Social History Tobacco Use Types Packs/Day Years [...] on filedocumented in this encounter Care Teams Glassware Finisher Relationship Specialty Start Date End Date Jacqueline Vu DO [address] [place] [address] PCP - General Family Medicine 10/04/20 [facility] [address] [place] [address] PCP - General Family Medicine 09/27/23 documented as of this encounter
[2025-01-21 18:19] LABS: Appearance Urine Cloudy; Glucose Urine UA Negative (Negative); PH 6.5 (5.0-9.0); Specific Gravity - Urine >= 1.030 (1.005-1.025); UMIC TRIGGER UACC YES
[2025-01-21 18:29] LABS: INTERNATIONAL NORM RATIO 1.1 (0.9-1.1); Prothrombin Time 13.4 SEC (11.2-13.5)
[2025-01-21 18:32] LABS: Partial Thromboplastin Time 25.8 SEC (26.7-34.1)
[2025-01-21] MEDS: metroNIDAZOLE/NS 500 MG/100 ML PIGGYBACK 100 MG IV (18:44)
[2025-01-21 18:55] LABS: UACC Culture Trigger YES
--- NOTE | 2025-01-21 19:12 | PC.NURSE ---
pt to [facility] transfer with K + .45% infusing. 800ml infused in ED Flag[facility] started directly prior to transport, also infusing on transfer.
--- NOTE | 2025-01-21 19:20 | PC.NURSE ---
2x calls to [facility], two different numbers, no answer after several minutes of ringing.
--- NOTE | 2025-01-21 19:25 | PC.NURSE ---
third call out to [facility] ER, no answer after several minutes
== END 2025-01-21 19:22 | disposition short-term general hospital (02) ==
PROVIDERS: Emergency Medicine; Emergency Provider Emergency Medicine
DX: R55 Syncope and collapse (principal); E86.1 Hypovolemia; S00.83XA Contusion of other part of head, initial encounter; X58.XXXA Exposure to other specified factors, initial encounter; Y93.9 Activity, unspecified; Y92.9 Unspecified place or not applicable; Y99.9 Unspecified external cause status; R35.0 Frequency of micturition; R10.32 Left lower quadrant pain; M54.50 Low back pain, unspecified; G47.00 Insomnia, unspecified; K22.70 Barrett's esophagus without dysplasia; M81.0 Age-related osteoporosis without current pathological fracture; E11.9 Type 2 diabetes mellitus without complications
CPT/HCPCS: 36415; 70450; 71045; 72125; 74177; 80053; 81001; 83605; 83735; 85025; 85610; 85730; 87086; 87088; 87186; 87637; 93005; 96361; 96365; 96375; 99285; J0696; J1836; J3010; J3480; J7120; Q9967

== ENCOUNTER → 2025-01-21 14:49 | Outpatient (BNV) | payer OTHER, SELFPAY | PROVIDERS: Emergency Provider Emergency Medicine; Visit Provider Internal Medicine | DX: I45.2 Bifascicular block (principal) | CPT/HCPCS: 93010 ==

== ENCOUNTER → 2025-01-21 14:49 | Outpatient (BNV) | payer OTHER, MEDICAID, SELFPAY | PROVIDERS: Emergency Provider Emergency Medicine; Visit Provider Radiology Diagnostic Radiology | DX: K57.30 Diverticulosis of large intestine without perforation or abscess without bleeding (principal); N32.89 Other specified disorders of bladder; S32.509A Unspecified fracture of unspecified pubis, initial encounter for closed fracture; S06.6X0A Traumatic subarachnoid hemorrhage without loss of consciousness, initial encounter; Z04.3 Encounter for examination and observation following other accident; R53.1 Weakness | CPT/HCPCS: 70450; 71045; 72125; 74177 ==